=== PATIENT | male | born 1985 | race African-American/Black ===

== ENCOUNTER 2017-07-03 13:32 | Emergency (ER) | payer MEDICAID ==
[2017-07-03 13:58] VITALS: BP 146/80
--- NOTE | 2017-07-03 15:49 | UC ---
Abdominal Pain Male HPI - HPI Summary HPI Summary: c/o cough, nasal d/c and later onset of liquid stools, low grade fever and vomiting for the past 3 days. States he has been able to tolerate food and fluids for the past 24 hrs. States he has been drinking coffee which has sent him to the bathroom. Denies presence of blood or mucus in stool - History of Current Complaint Chief Complaint: UCGI Stated Complaint: NAUSEA HEADACHE COUGH DIARRHEA Time Seen by Provider: 07/03/17 15:38 Hx Obtained From: Patient Onset/Duration: Gradual Onset, Lasting Days Severity Initially: Mild Severity Currently: Moderate Pain Intensity: 4 Location: Epigastric Radiates: No Character: Burning Aggravating Factor(s): Nothing Alleviating Factor(s): Nothing Associated Signs And Symptoms: Positive: Cough, Diarrhea - Risk Factors Testicular Torsion: Negative - Allergies/Home Medications Allergies/Adverse Reactions: Allergies Allergy/AdvReac Type Severity Reaction Status Date / Time shellfish derived Allergy Anaphylatic Verified 07/03/17 13:58 Shock Home Medications: Home Medications Fluoxetine HCl [Prozac] 40 mg PO 07/03/17 [History] Gabapentin (Once-Daily) [Gralise] 300 mg PO 07/03/17 [History] buPROPion TAB* [Wellbutrin TAB*] 100 07/03/17 [History] PMH/Surg Hx/FS Hx/Imm Hx Previously Healthy: Yes - Surgical History Surgical History: Yes Surgery Procedure, Year, and Place: ADDENOIDECTOMY - Family History Known Family History: Positive: Hypertension, Other - cousin with leukemia, grandfather lung ca, breast ca aunt, bipolar - Social History Alcohol Use: None Alcohol Amount: 2 "tall" boys per day (total 48oz total) Substance Use Type: None Substance Use Comment - Amount & Last Used: states no longer Smoking Status (MU): Heavy Every Day Tobacco Smoker Type: Cigarettes Amount Used/How Often: 1 carton per week Household Exposure Type: Cigarettes - Immunization History Most Recent Influenza Vaccination: unsure Most Recent Tetanus Shot: unsure Most Recent Pneumonia Vaccination: unsure Review of Systems Constitutional: Fever ENT: Nasal Discharge Respiratory: Cough Cardiovascular: Negative Gastrointestinal: Abdominal Pain, Vomiting, Diarrhea Genitourinary: Negative All Other Systems Reviewed And Are Negative: Yes Physical Exam Triage Information Reviewed: Yes Appearance: Well-Appearing Vital Signs: Initial Vital Signs Temp 98.7 F 07/03/17 13:53 Pulse 77 07/03/17 13:53 Resp 18 07/03/17 13:53 BP 146/80 07/03/17 13:53 Pulse Ox 100 07/03/17 13:53 Vital Signs Reviewed: Yes Eye Exam: Normal ENT Exam: Normal Dental Exam: Normal Neck exam: Normal Respiratory Exam: Normal Cardiovascular Exam: Normal Abdomen Description: Positive: Nontender, No Organomegaly, Soft Bowel Sounds: Positive: Present Abd Pain Male Course/Dx - Course Course Of Treatment: Continue oral hydration, avoid caffeine, avoid dairy with the exception of yougurt, continue food as tolerated, observe hand hygiene - Differential Dx/Clinical Impression Provider Diagnoses: viral gastroenteritis Discharge - Discharge Plan Condition: Stable Disposition: HOME Patient Education Materials: Gastroenteritis (ED) Referrals: No Primary Care Phys,NOPCP [Primary Care Provider] -
== END 2017-07-03 16:00 | disposition home or self-care (01) ==
LOC: UCEAST 13:32
DX: Z72.89 Other problems related to lifestyle (principal); F17.210 Nicotine dependence, cigarettes, uncomplicated; Z77.22 Contact with and (suspected) exposure to environmental tobacco smoke (acute) (chronic); A08.4 Viral intestinal infection, unspecified
CPT/HCPCS: 99212; G0463

== ENCOUNTER 2017-07-19 19:40 | Emergency (ER) | payer MEDICAID, OTHER ==
[2017-07-19] MEDS ORDERED: Ondansetron ODT TAB* 4 MG PO ONE (21:08)
[2017-07-19] MEDS ORDERED: Acetaminophen TAB* 325 MG PO ONE (21:08)
--- NOTE | 2017-07-19 21:29 | RAD ---
INDICATION: Head injury. COMPARISON: There are no prior studies available for comparison. TECHNIQUE: Contiguous axial sections of the brain were obtained from the skull base to the vertex without contrast. FINDINGS: The ventricles, cisterns and sulci are within normal limits. No significant focal abnormality or mass effect is seen. There is no evidence for hemorrhage. No significant focal osseous abnormality is seen. The visualized portion of the paranasal sinuses and mastoid air cells appear clear. IMPRESSION: NO EVIDENCE FOR ACUTE INTRACRANIAL ABNORMALITY.
--- NOTE | 2017-07-19 21:35 | RAD ---
INDICATION: Trauma. COMPARISON: There are no prior studies available for comparison. TECHNIQUE: Contiguous axial sections were obtained from the skull base through the T2 vertebra. Images were reconstructed in the sagittal and coronal planes. FINDINGS: There is straightening of the cervical spine with loss of the normal cervical lordosis. No fracture is seen. Disc spaces appear maintained. There is no evidence for spinal canal or neural foraminal narrowing. IMPRESSION: STRAIGHTENING OF THE CERVICAL SPINE, NO EVIDENCE FOR FRACTURE OR SUBLUXATION.
--- NOTE | 2017-07-19 21:45 | ED ---
Head Injury - HPI Summary HPI Summary: Patient here with fall earlier today. Was walking in the snow, ice and mud and slipped - fell forward and hit his for head (female health program manager relays hx - pt is foggy about the details). Currently has a headache, nausea, photophobia and neck stiffness. Reports history of multiple head injuries in the past - last one was 10 years ago. He also noticed some right elbow pain - not sure if he fell here - has some stiffness and it feels like it needs to "crack". Denies numbness, tingling, weakness elsewhere. No other pain in his chest, abdomen, back and lower extremities. - History Of Current Complaint Chief Complaint: EDHeadInjury Stated Complaint: HEAD INJURY Time Seen by Provider: 07/19/17 20:25 Hx Obtained From: Patient, Family/Office Aide - female health program manager Pain Intensity: 7 - Allergies/Home Medications Allergies/Adverse Reactions: Allergies Allergy/AdvReac Type Severity Reaction Status Date / Time shellfish derived Allergy Anaphylatic Verified 07/03/17 13:58 Shock PMH/Surg Hx/FS Hx/Imm Hx Previously Healthy: Yes - female health program manager is Endocrine/Hematology History: Denies: Hx Anticoagulant Therapy, Hx Blood Disorders, Hx Diabetes, Hx Thyroid Disease Cardiovascular History: Reports: Hx Hypertension - Has not seen an MD in years - was taking HCTZ but not now Denies: Hx Congestive Heart Failure Respiratory History: Reports: Hx Asthma - as a child Denies: Hx Chronic Obstructive Pulmonary Disease (COPD) GI History: Denies: Hx Ulcer History: Denies: Hx Renal Disease Psychiatric History: Reports: Hx Anxiety, Hx Substance Abuse Denies: Hx Eating Disorder - Surgical History Surgery Procedure, Year, and Place: ADDENOIDECTOMY Infectious Disease History: No Infectious Disease History: Denies: Hx Hepatitis, Hx Human Immunodeficiency Virus (HIV), Traveled Outside the [place] in Last 30 Days - Family History Known Family History: Positive: Hypertension, Other - cousin with leukemia, grandfather lung ca, breast ca aunt, bipolar - Social History Lives: With Family Alcohol Use: None Alcohol Amount: 2 "tall" boys per day (total 48oz total) Hx Substance Use: Yes Substance Use Type: Reports: None Substance Use Comment - Amount & Last Used: states no longer Hx Tobacco Use: Yes Smoking Status (MU): Heavy Every Day Tobacco Smoker Type: Cigarettes Amount Used/How Often: 1 carton per week Review of Systems Positive: Photophobia. Negative: Blurred Vision, Diplopia Negative: Dental Pain Cardiovascular: Negative Negative: Chest Pain Respiratory: Negative Negative: Shortness Of Breath Positive: Nausea. Negative: Abdominal Pain, Vomiting, Diarrhea Positive: no symptoms reported Positive: Arthralgia, Myalgia Skin: Negative Neurological: Other - memory loss Positive: Headache. Negative: Weakness, Paresthesia, Numbness, Syncope, Slurred Speech Psychological: Other - calm but concerned All Other Systems Reviewed And Are Negative: Yes Physical Exam Triage Information Reviewed: Yes Vital Signs On Initial Exam: Initial Vitals Temp Pulse Resp BP Pulse Ox 98.5 F 65 14 144/85 97 07/19/17 19:46 07/19/17 19:46 07/19/17 19:46 07/19/17 19:46 07/19/17 19:46 Vital Signs Reviewed: Yes Appearance: Positive: Well-Nourished - Patient is sleeping on stretcher with face covered upon entrance; he is easily arousable with focal stimuli; he is able to relay his story however is foggy about details - female health program manager helps and relaying history of present illness as she was present and witnessed the event Skin: Positive: Warm, Skin Color Reflects Adequate Perfusion, Dry - No erythema , no ecchymosis, no skin breakdown over for head were patient reports striking his head earlier tonight Head/Face: Positive: Normal Head/Face Inspection - No edema or skull deformity however he does have tenderness to palpation over left forehead Eyes: Positive: EOMI, SHEILA - Mild photophobia, Conjunctiva Clear ENT: Positive: Normal ENT inspection, Hearing grossly normal, Pharynx normal, TMs normal - No hemotympanum Dental: Negative: Dental Fracture @ Neck: Positive: Supple - Mild paracervical tenderness to palpation extending into trapezius muscles; spinous processes nontender to palpation; limited range of motion due to patient reporting "stiffness Respiratory/Lung Sounds: Positive: Clear to Auscultation, Breath Sounds Present - " Cardiovascular: Positive: Normal, RRR, Pulses are Symmetrical in both Upper and Lower Extremities Abdomen Description: Positive: Nontender, No Organomegaly, Soft Musculoskeletal: Positive: Strength/ROM Intact - Full range of motion right upper extremity including shoulder elbow wrist and phalanges however patient reports a sensation to "crack" his elbow and has tenderness to palpation over her olecranon process without edema, ecchymosis, skin breakdown or acute deformity Neurological: Positive: Normal, Sensory/Motor Intact, Alert, Oriented to Person Place, Time - Patient is currently alert and oriented to his person place and time however he has difficulty recalling details of the event and minutes before and after, CN Intact II-III, Facial Symmetry - the events, Speech Normal. Negative: Pronator Drift Present Psychiatric: Positive: Other - Calm, pleasant Diagnostics - Vital Signs Vital Signs Temp Pulse Resp BP Pulse Ox 07/19/17 19:46 98.5 F 65 14 144/85 97 - Laboratory Diagnostic Studies Comment: CTs and XR's reviewed without acute findings Lab Statement: Any lab studies that have been ordered have been reviewed, and results considered in the medical decision making process. Head Injury Course/Dx - Diagnoses Provider Diagnoses: Fall from standing, Concussion, Cervical strain Discharge - Discharge Plan Condition: Stable Disposition: HOME Patient Education Materials: Concussion (ED), Cervical Strain (ED) Forms: *Work Release Referrals: No Primary Care Phys,NOPCP [Primary Care Provider] - Additional Instructions: Physical and cognitive rest over the next 48 hours. Follow-up with PCP, urgent care or return to the emergency department in 2-3 days for neurological recheck. In the meantime you may stay hydrated (ie. avoid stimulants, diuretics , etc - caffeine, alcohol, nicotine, etc), stay well nourished, take acetaminophen alternating with ibuprofen for headache. If you develop change in vision, severe headache despite recommendations, numbness, weakness, syncope , return to the emergency department.
--- NOTE | 2017-07-19 22:06 | RAD ---
INDICATION: Right elbow injury. TECHNIQUE: 2 views of the right elbow were obtained. FINDINGS: The bones are in normal alignment. No joint effusion or fracture is seen. Joint spaces appear maintained. IMPRESSION: NO EVIDENCE FOR FRACTURE, IF THE PATIENT'S SYMPTOMS PERSIST RECOMMEND FOLLOW-UP IMAGING.
[2017-07-19 23:40] VITALS: BP 146/92
== END 2017-07-19 23:38 | disposition home or self-care (01) ==
LOC: ED 19:40
DX: S06.0X9A Concussion with loss of consciousness of unspecified duration, initial encounter (principal); W00.9XXA Unspecified fall due to ice and snow, initial encounter; Y92.9 Unspecified place or not applicable; R51 Headache; R11.0 Nausea; H53.149 Visual discomfort, unspecified; Z86.79 Personal history of other diseases of the circulatory system; F17.210 Nicotine dependence, cigarettes, uncomplicated
CPT/HCPCS: 70450; 72125; 99282; A9270-GY

== ENCOUNTER 2017-07-22 13:29 | Emergency (ER) | payer OTHER ==
[2017-07-22 13:48] VITALS: BP 161/103
--- NOTE | 2017-07-22 13:53 | UC ---
Head Injury HPI - HPI Summary HPI Summary: fell and hit head 3 days ago--seen in ED has continued fatigue, headache, ears ringing and muscular pain in neck - History Of Current Complaint Hx Obtained From: Patient Mechanism Of Injury: fall on ice Onset/Duration: Sudden Onset Severity Currently: Moderate Severity Initially: Moderate Pain Intensity: 7 Pain Scale Used: 0-10 Numeric Character: Pressure Aggravating Factor(s): Nothing Alleviating Factor(s): Nothing Associated Signs And Symptoms: Positive: Negative, Neck Pain, Nausea <Deb Vegas - Last Filed: 07/22/17 14:55> <Charlene Kaiser - Last Filed: 07/23/17 06:51> - History Of Current Complaint Chief Complaint: UCHeadInjury Stated Complaint: HEAD INJURY RECHECK Time Seen by Provider: 07/22/17 13:50 - Allergies/Home Medications Allergies/Adverse Reactions: Allergies Allergy/AdvReac Type Severity Reaction Status Date / Time shellfish derived Allergy Anaphylatic Verified 07/03/17 13:58 Shock PMH/Surg Hx/FS Hx/Imm Hx Previously Healthy: No Cardiovascular History: Hypertension Psychological History: Depression Other History Of: Negative For: Anticoagulant Therapy - Surgical History Surgical History: Yes Surgery Procedure, Year, and Place: ADDENOIDECTOMY - Family History Known Family History: Positive: Hypertension, Other - cousin with leukemia, grandfather lung ca, breast ca aunt, bipolar - Social History Occupation: Employed Full-time Lives: With Family Alcohol Use: None Alcohol Amount: 2 "tall" boys per day (total 48oz total) Substance Use Type: None Substance Use Comment - Amount & Last Used: states no longer Smoking Status (MU): Heavy Every Day Tobacco Smoker Type: Cigarettes Amount Used/How Often: 1 carton per week Have You Smoked in the Last Year: Yes Household Exposure Type: Cigarettes Cessation Counseling: Patient Advised to Stop - Immunization History Most Recent Influenza Vaccination: unsure Most Recent Tetanus Shot: unsure Most Recent Pneumonia Vaccination: unsure <Deb Vegas - Last Filed: 07/22/17 14:55> Review of Systems Constitutional: Negative Skin: Negative Eyes: Negative ENT: Negative Respiratory: Negative Cardiovascular: Negative Gastrointestinal: Nausea Genitourinary: Negative Motor: Negative Neurovascular: Negative Musculoskeletal: Myalgia Neurological: Headache Psychological: Negative Is Patient Immunocompromised?: No All Other Systems Reviewed And Are Negative: Yes <Deb Vegas - Last Filed: 07/22/17 14:55> Physical Exam Triage Information Reviewed: Yes Appearance: Well-Appearing, Well-Nourished, Pain Distress - mild Vital Signs: Initial Vital Signs Temp 98.1 F 07/22/17 13:43 Pulse 68 07/22/17 13:43 Resp 16 07/22/17 13:43 BP 161/103 07/22/17 13:43 Pulse Ox 98 07/22/17 13:43 Vital Signs Reviewed: Yes Eye Exam: Normal Eyes: Positive: Conjunctiva Clear ENT Exam: Normal ENT: Positive: Normal ENT inspection, Hearing grossly normal, Pharynx normal, TMs normal, Tonsillar swelling, Tonsillar exudate, Trismus. Negative: Nasal congestion, Nasal drainage, TM bulging, TM dull, TM red, Muffled voice, Hoarse voice, Dental tenderness, Sinus tenderness, Uvula midline Dental Exam: Normal Neck exam: Normal Neck: Positive: Supple, Nontender, No Lymphadenopathy Respiratory Exam: Normal Respiratory: Positive: Chest non-tender, Lungs clear, Normal breath sounds, No respiratory distress, No accessory muscle use Cardiovascular Exam: Normal Cardiovascular: Positive: RRR, No Murmur, Pulses Normal, Brisk Capillary Refill Abdominal Exam: Normal Abdomen Description: Positive: Nontender, No Organomegaly, Soft. Negative: CVA Tenderness (R), CVA Tenderness (L) Bowel Sounds: Positive: Present Musculoskeletal Exam: Normal Musculoskeletal: Positive: Strength Intact, ROM Intact, No Edema Neurological Exam: Normal Neurological: Positive: Alert, Muscle Tone Normal Psychological Exam: Normal Skin Exam: Normal <Deb Vegas - Last Filed: 07/22/17 14:55> Vital Signs: Initial Vital Signs Temp 98.1 F 07/22/17 13:43 Pulse 68 07/22/17 13:43 Resp 16 07/22/17 13:43 BP 161/103 07/22/17 13:43 Pulse Ox 98 07/22/17 13:43 <Charlene Kaiser - Last Filed: 07/23/17 06:51> Head Injury Course/Dx - Course Course Of Treatment: pain med and muscle relaxer, continue work note follow with pcp for blood pressure and Dr. Westbrook for concussion - Differential Dx/Diagnosis Provider Diagnoses: Concussion, muscle strain <Deb Vegas - Last Filed: 07/22/17 14:55> Discharge <Deb Vegas - Last Filed: 07/22/17 14:55> <Charlene Kaiser - Last Filed: 07/23/17 06:51> - Discharge Plan Condition: Stable Disposition: HOME Prescriptions: Cyclobenzaprine TAB* [Flexeril 10 MG TAB*] 10 mg PO TID PRN #15 tab PRN Reason: muscle spasm Naproxen [Naproxen 500 mg] 500 mg PO BID PRN #30 tablet PRN Reason: pain Patient Education Materials: Concussion (ED), Post Concussion Syndrome (ED), Hypertension (ED) Forms: *Work Release Referrals: [facility] [place] [place]ERR[place] [Outside] - 3 Days Homero Westbrook MD [Medical Doctor] - 3 Days () Attestation Statement User Type: Provider - I was available for consult. This patient was seen by the ANTON. The patient was not presented to, seen by, or examined by me. Michaelle <Charlene Kaiser - Last Filed: 07/23/17 06:51>
== END 2017-07-22 14:27 | disposition home or self-care (01) ==
LOC: UCEAST 13:29
DX: S06.0X9D Concussion with loss of consciousness of unspecified duration, subsequent encounter (principal); S16.1XXD Strain of muscle, fascia and tendon at neck level, subsequent encounter; W00.0XXD Fall on same level due to ice and snow, subsequent encounter; I10 Essential (primary) hypertension; F32.9 Major depressive disorder, single episode, unspecified; F17.210 Nicotine dependence, cigarettes, uncomplicated
CPT/HCPCS: 99211; G0463

== ENCOUNTER 2017-08-25 19:24 | Emergency (ER) | payer OTHER ==
[2017-08-25 19:38] VITALS: BP 144/86
--- NOTE | 2017-08-25 19:38 | UC ---
Throat Pain/Nasal Boyd HPI - History of Current Complaint Stated Complaint: THROAT PAIN Time Seen by Provider: 08/25/17 19:37 - Allergies/Home Medications Allergies/Adverse Reactions: Allergies Allergy/AdvReac Type Severity Reaction Status Date / Time shellfish derived Allergy Anaphylatic Verified 08/25/17 19:38 Shock PMH/Surg Hx/FS Hx/Imm Hx Previously Healthy: Yes Psychological History: Anxiety, Depression Other History Of: Negative For: Anticoagulant Therapy - Surgical History Surgical History: Yes Surgery Procedure, Year, and Place: ADENOIDECTOMY;. WISDOM TEETH; - Family History Known Family History: Positive: Hypertension, Other - cousin with leukemia, grandfather lung ca, breast ca aunt, bipolar - Social History Occupation: Employed Full-time Lives: With Family Alcohol Use: Occasionally Substance Use Type: None Substance Use Comment - Amount & Last Used: states no longer Smoking Status (MU): Heavy Every Day Tobacco Smoker Type: Cigarettes Amount Used/How Often: 1 carton per week Have You Smoked in the Last Year: Yes Household Exposure Type: Cigarettes - Immunization History Most Recent Influenza Vaccination: unsure Most Recent Tetanus Shot: unsure Most Recent Pneumonia Vaccination: unsure Review of Systems Constitutional: Negative Skin: Negative Eyes: Negative ENT: Sore Throat Respiratory: Negative Cardiovascular: Negative Gastrointestinal: Negative Neurovascular: Negative Neurological: Negative Psychological: Negative All Other Systems Reviewed And Are Negative: Yes Physical Exam Triage Information Reviewed: Yes Throat Pain/Nasal Course/Dx - Course Course Of Treatment: POC strep Discharge - Sign-Out/Discharge Documenting (check all that apply): Discharge - Discharge Plan Condition: Stable Disposition: HOME Referrals: No Primary Care Phys,NOPCP [Primary Care Provider] - - Billing Disposition and Condition Condition: STABLE Disposition: HOME
--- NOTE | 2017-08-25 20:40 | UC ---
Ramiro Giron Gabriel, scribed for Feliciano Spear MD on 08/25/17 at 2006 . Throat Pain/Nasal Boyd HPI - HPI Summary HPI Summary: This patient is a 32 year old M [place] [facility] [place] [facility] [place] chief complaint of sore throat that began a week ago. The patient rates the pain 7/10 in severity. Patient reports ear pain. Patient denies rhinorrhea, myalgia, cough, chest congestion, and post nasal drip. - History of Current Complaint Chief Complaint: UCGeneralIllness Stated Complaint: THROAT PAIN Time Seen by Provider: 08/25/17 19:37 Hx Obtained From: Patient Onset/Duration: Lasting Weeks - 1, Still Present Severity: Moderate Pain Intensity: 7 Pain Scale Used: 0-10 Numeric Associated Signs & Symptoms: Positive: Negative - rhinorrhea, myalgia, cough, chest congestion, post nasal drip,, Other - ear pain - Allergies/Home Medications Allergies/Adverse Reactions: Allergies Allergy/AdvReac Type Severity Reaction Status Date / Time shellfish derived Allergy Anaphylatic Verified 08/25/17 19:38 Shock PMH/Surg Hx/FS Hx/Imm Hx Other History Of: Negative For: Anticoagulant Therapy - Surgical History Surgical History: Yes Surgery Procedure, Year, and Place: ADENOIDECTOMY;. WISDOM TEETH; - Family History Known Family History: Positive: Hypertension, Other - cousin with leukemia, grandfather lung ca, breast ca aunt, bipolar - Social History Alcohol Use: None Alcohol Amount: 2 "tall" boys per day (total 48oz total) Substance Use Type: None Substance Use Comment - Amount & Last Used: states no longer Smoking Status (MU): Heavy Every Day Tobacco Smoker Type: Cigarettes Amount Used/How Often: 1 carton per week Have You Smoked in the Last Year: Yes Household Exposure Type: Cigarettes - Immunization History Most Recent Influenza Vaccination: unsure Most Recent Tetanus Shot: unsure Most Recent Pneumonia Vaccination: unsure Review of Systems ENT: Sore Throat, Ear Ache Respiratory: Negative - cough All Other Systems Reviewed And Are Negative: Yes Physical Exam - Summary Physical Exam Summary: General: well-appearing, no pain distress Skin: warm, color reflects adequate perfusion, dry Head: normal Eyes: EOMI, SHEILA ENT: posterior pharynx erythema. Positive anterior cervical lymphadenopathy, uvula is midline, no peritonsillar abscess. Neck: supple, nontender Respiratory: CTA, breath sounds present Cardiovascular: RRR Abdomen: soft, nontender Bowel: present Musculoskeletal: normal, strength/ROM intact Neurological: normal, sensory/motor intact, A&O x3 Psychological: affect/mood appropriate Triage Information Reviewed: Yes Vital Signs: Initial Vital Signs Temp 98.8 F 08/25/17 19:35 Pulse 87 08/25/17 19:35 Resp 20 08/25/17 19:35 BP 144/86 08/25/17 19:35 Pulse Ox 96 08/25/17 19:35 Vital Signs Reviewed: Yes Throat Pain/Nasal Course/Dx - Course Assessment/Plan: BP noted and advised to follow up with PCP. - Differential Dx/Diagnosis Provider Diagnoses: PHARYNGITIS. Elevated blood pressure without a previous diagnoses of hypertension Discharge - Sign-Out/Discharge Documenting (check all that apply): Discharge - Discharge Plan Condition: Stable Disposition: HOME Prescriptions: Amoxicillin/Clavulanate TAB* [Augmentin TAB 875*] 875 mg PO BID #20 tab predniSONE TAB* [Deltasone TAB*] 40 mg PO DAILY #6 tab Patient Education Materials: Pharyngitis (ED) Referrals: [facility] [place] [place] [Outside] Additional Instructions: FOLLOW UP WITH YOUR DOCTOR. GET RECHECKED FOR ANY WORSENING OF YOUR CONDITION OR QUESTIONS OR CONCERNS. YOUR BLOOD PRESSURE WAS ELEVATED TODAY; FOLLOW UP WITH YOUR PRIMARY CARE DOCTOR WITHIN ONE WEEK. - Billing Disposition and Condition Condition: STABLE Disposition: HOME The documentation as recorded by the Ramiro carreon Gabriel accurately reflects the service I personally performed and the decisions made by me, Feliciano Spear MD.
== END 2017-08-25 20:17 | disposition home or self-care (01) ==
LOC: UCEAST 19:24
DX: J02.9 Acute pharyngitis, unspecified (principal); R03.0 Elevated blood-pressure reading, without diagnosis of hypertension; F17.210 Nicotine dependence, cigarettes, uncomplicated
CPT/HCPCS: 87651; 99212; G0463

== ENCOUNTER 2018-01-05 12:25 | Emergency (ER) | payer OTHER ==
--- OUTSIDE RECORDS SUMMARY | 2018-01-05 12:35 | XMS REPORT ---
:1985 External Reference #:[id number] Author Organization [facility] Address [address] [place] [address] Phone [phone] Care Team Providers Name Role Phone Chuck Velazco MD Care Team Information Fundraising Assistant Unavailable Chuck Velazco MD Primary Care Physician Unavailable Payers Type Date Identification Numbers Payment Provider Subscriber Health Maintenance Policy Number: [id number] [facility] [place] (HMO) PayID: [id number] [address] [address] [place] [address] Problems Description No Information Family History Date Family Member(s) Problem(s) Comments General Asthma General Migraine General Vertigo Social History Type Date Description Comments Occupation Unknown Cigarette Use Current Cigarette Smoker 1 Pack Daily Cigars Never Smoked Cigars Pipe Never Smoked A Pipe Smokeless Tobacco Never Used Smokeless Tobacco ETOH Use Occasionally consumed alcohol in the past Smoking Patient is a current smoker, smokes every day Allergies, Adverse Reactions, Alerts Date Description Reaction Status Severity Comments 12/28/2017 NKDA active Medications Medication Date Status Form Strength Qnty SIG Indications Ordering Provider Bupropion HCL 0 Active Tablets ? as directed Unknown 000 Gabapentin 0 Active Capsules ? as directed Unknown 000 Trazodone HCL 0 Active Tablets ? as directed Unknown 000 Fluoxetine HCL 0 Active Capsules ? once daily Unknown 000 Neltrexon Active Capsules as directed Unknown 000 Medications Administered in Office Medication Date Status Form Strength Qnty SIG Indications Ordering Provider Allergen Administered Injection Brett Wilcox IgE 000 Inna Walsh Vital Signs Date Vital Result Comment 12/28/2017 Weight 261.00 lb Weight in kg's 118.390 Height 68 inches 5'8" Height in cm's 172.7 cm BMI (Body Mass Index) 39.7 kg/m2 Results Description No Information Procedures Date CPT Code Description Status 12/28/2017 32352 Tympanometry Completed 12/28/2017 90927 Comprehensive Audiogram Completed Encounters Type Date Location Provider CPT E/M Dx Office Visit 12/28/2017 [place] 06/01/07 Brett Alvarado 22615 S06.0x1A 1:30p Inna Walsh H51.0 F07.81 H81.43 Plan of Care 12/28/2017 - Brett Walsh M.D.S06.0x1A Concussion w Loc of 30 minutes or less, initComments:The patient in July fell, hit his head and had a concussion with LOC. He still is getting dizzy, and at times having double vision. I looked at a MRI he had after the injury that was essentially normal. His hearing today is normal. I think I am seeing disconjugate gaze on his examination. I talked to Dr. Michael and he will have him seen at his office. If needed he may need more of a work up.From my standpoint he needs to start vestibular rehabilitation. He should NOT take the Meclizine.H51.0 Palsy (spasm ) of conjugate gazeF07.81 Postconcussional aodayxwiQ03.43 Vertigo of central origin, bilateral
[2018-01-05 12:46] VITALS: BP 137/100
--- NOTE | 2018-01-05 12:55 | UC ---
Head Injury HPI - HPI Summary HPI Summary: 32 yo gentleman c/o headache since yesterday. Hit head on a metal bar. No LOC. + nausea with vomit at the scene. Feels better now, periodic nausea, but still doesn't feel "right." + H/a. No vis/ aud changes. No p/d/w. No neck pain. No sob, cp / palpitations. + hx prior head injury Jul 2017, seen in ED [facility] (reports /ancillaries in [facility]). No scalp laceration. - History Of Current Complaint Chief Complaint: UCHeadInjury Stated Complaint: HEAD INJURY Time Seen by Provider: 01/05/18 12:48 Hx Obtained From: Patient Pain Intensity: 6 - Allergies/Home Medications Allergies/Adverse Reactions: Allergies Allergy/AdvReac Type Severity Reaction Status Date / Time shellfish derived Allergy Anaphylatic Verified 01/05/18 12:46 Shock PMH/Surg Hx/FS Hx/Imm Hx Previously Healthy: Yes Other History Of: Negative For: Anticoagulant Therapy - Surgical History Surgical History: Yes Surgery Procedure, Year, and Place: ADENOIDECTOMY;. WISDOM TEETH; - Family History Known Family History: Positive: Hypertension, Other - cousin with leukemia, grandfather lung ca, breast ca aunt, bipolar - Social History Alcohol Use: None Alcohol Amount: 2 "tall" boys per day (total 48oz total) Substance Use Type: None Substance Use Comment - Amount & Last Used: states no longer Smoking Status (MU): Heavy Every Day Tobacco Smoker Type: Cigarettes Amount Used/How Often: 1 carton per week Have You Smoked in the Last Year: Yes Household Exposure Type: Cigarettes - Immunization History Most Recent Influenza Vaccination: unsure Most Recent Tetanus Shot: unsure Most Recent Pneumonia Vaccination: unsure Review of Systems Constitutional: Negative Skin: Other - see hpi Eyes: Other - see hpi ENT: Other - see hpi Respiratory: Negative Cardiovascular: Negative Gastrointestinal: Other - see hpi Genitourinary: Negative Motor: Negative Neurovascular: Negative Musculoskeletal: Negative Neurological: Headache Psychological: Negative Is Patient Immunocompromised?: No All Other Systems Reviewed And Are Negative: Yes Physical Exam Triage Information Reviewed: Yes Appearance: Well-Appearing, Well-Nourished Vital Signs: Initial Vital Signs Temp 98 F 01/05/18 12:43 Pulse 66 01/05/18 12:43 Resp 16 01/05/18 12:43 BP 137/100 01/05/18 12:43 Pulse Ox 99 01/05/18 12:43 Vital Signs Reviewed: Yes Eye Exam: Normal - perrla eomi sw / cp fundi nondilated direct, grossly benign ENT Exam: Normal Neck exam: Normal Neck: Positive: Supple, Nontender Respiratory Exam: Normal Respiratory: Positive: Chest non-tender, Lungs clear, Normal breath sounds, No respiratory distress, No accessory muscle use Cardiovascular Exam: Normal Cardiovascular: Positive: RRR, No Murmur, Pulses Normal, Brisk Capillary Refill Abdominal Exam: Normal - + nabs Abdomen Description: Positive: Nontender Musculoskeletal Exam: Normal - moves x 4 ext's, gait steady Neurological Exam: Other - PERRLA EOMI SW CP. Fundi nondilated grossly benign. + mild nystagmus lavelle R. Sees double at appro 18 inches direct interrogation. Facial expressions grossly symmetric. Other than as above, CN 1-12 nl, no c/ o smell d/o. Gait slow, steady. Heel to toe forward and backward eyes open approx 4 ft, able to maintain but unsteady. Sharpened rhomberg 4 sec R, 3 sec L Psychological Exam: Normal - conversing easily and appropriately Skin Exam: Normal - no visible or reported rash. Scalp without laceration. THere is a bump approx 1 1/2cm mid upper occip / post parietal. Minimally fluctuant. Tender to pressure. Head Injury Course/Dx - Course Course Of Treatment: D/w pt and sonography technologist current s/sx - c/w concussion, in the setting of a prior concussion. Reluctant to order CT brain d/t recent imaging ( noted in [employer]); however, given prolonged nausea, h/a, apparent significant injury with vomit, the concern for possible additional trauma is present. D/w pt. CT brain NAD today. Reviewed coa / tx plan with pt and sonography technologist. Questions as posed answered to the best of my ability. Requested note to MELO , advising that he was seen here for treatment. - Differential Dx/Diagnosis Provider Diagnoses: Concussion. in the setting of prior concussion Discharge - Sign-Out/Discharge Documenting (check all that apply): Patient Departure - Discharge Plan Condition: Stable Disposition: HOME Patient Education Materials: Concussion (ED) Forms: *Gen. Provider Communication Referrals: Chuck Velazco MD [Primary Care Provider] - Additional Instructions: Follow up with your primary care physician. Call today or tomorrow for appointment, this week if possible. Continue to follow up with your eye doctor, and any other services regarding your previous concussion treatment. Seek medical attention for worse or new problems. Do not drive until ok by your doctor, and until you are feeling normal to drive. - Billing Disposition and Condition Condition: STABLE Disposition: Home
--- NOTE | 2018-01-05 13:46 | RAD ---
Indication: Head injury with persistent vomiting. CT of the brain was performed without IV contrast. Comparison is made with previous exam dated July 19, 2017. Ventricular structures are midline. No midline shift is noted. The extra-axial spaces are unremarkable. There is no evidence of intracranial mass or hemorrhage. No other high or low density lesions identified. Mastoid air cells and paranasal sinuses are grossly unremarkable. Overall no changes noted since July 19, 2017. IMPRESSION: No intracranial mass or hemorrhage is noted.
== END 2018-01-05 14:50 | disposition home or self-care (01) ==
LOC: UCEAST 12:25
DX: S06.0X0A Concussion without loss of consciousness, initial encounter (principal); W22.8XXA Striking against or struck by other objects, initial encounter; Y93.9 Activity, unspecified; Y92.9 Unspecified place or not applicable; Z91.013 Allergy to seafood; Z82.49 Family history of ischemic heart disease and other diseases of the circulatory system; Z80.6 Family history of leukemia; Z80.1 Family history of malignant neoplasm of trachea, bronchus and lung; Z80.3 Family history of malignant neoplasm of breast; F17.210 Nicotine dependence, cigarettes, uncomplicated
CPT/HCPCS: 70450; 99211; G0463

== ENCOUNTER 2018-01-11 20:50 | Emergency (ER) | payer OTHER ==
--- NOTE | 2018-01-11 21:04 | UC ---
Cardiac HPI - HPI Summary HPI Summary: The pt is a 32 y/o male presenting to c/o of CP rated 6/10 in severity and sudden onset MONROE rated 8/10 in severity worse today. The cramping CP is worse in the left side of his chest and radiates to the L arm. The MONROE is worse at the occipital region and is unrelieved by rapid-release Tylenol . He notes photophobia, fatigue, SOB , and diaphoresis. He reports a hx of migraines and concussion. This is scribe Christin Santoro documenting for attending Dr. Feliciano Spear.I , Dr. Feliciano Spear personally performed the services described in this documentation as scribed in my presence and it is both accurate and complete. - History of Current Complaint Stated Complaint: HEADACHE, HIGH BLOOD PRESSURE, AND CHEST PAIN Time Seen by Provider: 01/11/18 20:58 Hx Obtained From: Patient Onset/Duration: Sudden Onset, Still Present Timing: Constant Initial Severity: Severe Current Severity: Severe Pain Intensity: 8 - CP= 6/10 and MONROE= 8/10 Chest Pain Location: Discrete at: - L chest and occipital region of the head Associated Signs & Symptoms: Positive: Chest Pain, Headaches - Allergy/Home Medications Allergies/Adverse Reactions: Allergies Allergy/AdvReac Type Severity Reaction Status Date / Time shellfish derived Allergy Anaphylatic Verified 01/11/18 21:05 Shock PMH/Surg Hx/FS Hx/Imm Hx Previously Healthy: No - Has a PMHX of HTN, migraines and concussion Other History Of: Negative For: Anticoagulant Therapy - Surgical History Surgical History: Yes Surgery Procedure, Year, and Place: ADENOIDECTOMY;. WISDOM TEETH; - Family History Known Family History: Positive: Cardiac Disease, Hypertension, Diabetes, Other - cousin with leukemia, grandfather lung ca, breast ca aunt, bipolar - Social History Occupation: Employed Full-time Lives: With Family Alcohol Use: None Alcohol Amount: 2 "tall" boys per day (total 48oz total) Substance Use Type: None Substance Use Comment - Amount & Last Used: states no longer Smoking Status (MU): Heavy Every Day Tobacco Smoker Type: Cigarettes Amount Used/How Often: 1 carton per week Have You Smoked in the Last Year: Yes Household Exposure Type: Cigarettes - Immunization History Most Recent Influenza Vaccination: unsure Most Recent Tetanus Shot: unsure Most Recent Pneumonia Vaccination: unsure Review of Systems Constitutional: Other - Positive: Fatigue Skin: Other - Positive: diaphoreis Eyes: Photophobia Respiratory: Shortness Of Breath, Other - Positive: CP Neurological: Headache All Other Systems Reviewed And Are Negative: Yes Physical Exam - Summary Physical Exam Summary: General: well-appearing, mild pain distress Skin: warm, color reflects adequate perfusion, dry Head: normal Eyes: EOMI, SHEILA ENT: normal Neck: supple, nontender Respiratory: CTA, breath sounds present Cardiovascular: RRR Abdomen: soft, nontender Bowel: present Musculoskeletal: normal, strength/ROM intact Neurological: sensory/motor intact, A&O x3 Psychological: affect/mood appropriate Triage Information Reviewed: Yes Vital Signs Reviewed: Yes Diagnostics - EKG EKG Comments: 21:05 ST elevation with probable early repetitive pattern Cardiac Rate: NL Cardiac Rhythm: Sinus: Normal - 67 bpm Ectopy: None EKG Comparison: No Significant Change - No significant changes compared to the one done on 06/27/2015 - Assessment/Plan Course Of Treatment: PATIENT REPORTS HE HAS BEEN ON HCTZ IN THE PAST FOR HTN. WE DO NOT HAVE HCTZ HERE. I GAVE METOPROLOL 12.5MG, ASA 324MG AND ACETAMINOPHEN 975MG PO HERE IN CLINIC. RX HCTZ 25MG PO QD. NO EKG CHANGE COMPARED TO 06/27/17 EKG. I RECOMMENDED GOING DIRECTLY TO THE EMERGENCY DEPARTMENT FOR FURTHER EVALUATION. - Clinical Impression Provider Diagnoses: HEADACHE. CHEST PAIN. HYPERTENSION Discharge - Sign-Out/Discharge Documenting (check all that apply): Patient Departure - Discharge Plan Condition: Stable Disposition: HOME-RECOMMEND TO ED Prescriptions: Hydrochlorothiazide TAB* [Hydrodiuril TAB*] 25 mg PO DAILY #30 tab Patient Education Materials: Chest Pain (ED), Acute Headache (ED), Hypertension (ED) Referrals: Chuck Velazco MD [Primary Care Provider] - Additional Instructions: GO TO THE EMERGENCY DEPARTMENT FOR FURTHER EVALUATION AND CARE OF YOUR CHEST PAIN, HEADACHE AND HIGH BLOOD PRESSURE. FOLLOW UP WITH YOUR DOCTOR. GET RECHECKED FOR ANY WORSENING OF YOUR CONDITION OR QUESTIONS OR CONCERNS. - Billing Disposition and Condition Condition: STABLE Disposition: Home-Recommend to ED
[2018-01-11 21:05] VITALS: BP 169/91
--- OUTSIDE RECORDS SUMMARY | 2018-01-11 21:14 | XMS REPORT ---
:1985 External Reference #:[id number] Author Organization [facility] Address [address] [place] [address] Phone [phone] Care Team Providers Name Role Phone Chuck Velazco M.D. Primary Care Physician Unavailable Payers Type Date Identification Numbers Payment Provider Subscriber Commercial Policy Number: [id number] [employer] Eleno Chacko PayID: [id number] [address] [place] [address] Problems Date Description Provider Status Onset: Vertigo Active Onset: Essential hypertension Active Onset: Seasonal asthma Active Onset: Dizzy spells Active Onset: 01/06/2018 Postconcussion syndrome Deya Bower O.D. Active Family History Date Family Member(s) Problem(s) Comments Father No Current Problems Mother Diabetes Paternal Grandmother Cataract Maternal Grandmother Cataract Social History Type Date Description Comments Marital Status Single Work Status Unemployed ETOH Use Denies alcohol use Smoking Heavy tobacco smoker (more than 10 cigarettes/day) Recreational Drug Use Denies Drug Use Daily Caffeine Consumes on average 2 cups of regular coffee per day Allergies, Adverse Reactions, Alerts Date Description Reaction Status Severity Comments 01/06/2018 NKDA active Medications Medication Date Status Form Strength Qnty SIG Indications Ordering Provider Bupropion HCL / Active Tablets ER 300mg Take 1 Unknown ER (XL) 0000 24HR Tablet By Mouth Every Day Ventolin HFA / Active Aerosol 108(90Base Take 1-2 Unknown 0000 ) mcg/Act Puffs Every 4 Hours as Needed For Wheezing Or Cough Naltrexone / Active Tablets 50mg Take 1 Unknown HCL 0000 Tablet By Mouth Every Day Fluoxetine / Active Capsules 20mg Take 4 Unknown HCL 0000 Capsules By Mouth Every Day For A Max Of 80 MG Per Day Albuterol / Active Nebulizer (2.5mg/3ML Inhale The Unknown Sulfate 0000 ) 0.083% Contents Of 1 Vial Via Nebulizer 2-3 Times A Day as Needed Results Description No Information Procedures Description No Information Plan of Care 01/06/2018 - Deya Bower O.D.F07.81 Postconcussional syndromeComments: Smoking can increase the risk of developing or worsening any eye related disease , as well as affect your overall health. If you are a smoker, we strongly recommend that you quit.If you are not a smoker, we strongly recommend that you do not start.Follow up:1 Year Follow Up
[2018-01-11] MEDS ORDERED: Acetaminophen TAB* 325 MG PO ONE (21:29)
[2018-01-11] MEDS ORDERED: Metoprolol Tartrate TAB* 25 MG PO ONE (21:29)
[2018-01-11] MEDS ORDERED: Aspirin 81 mg CHEW TAB* 81 MG TAB.CHEW PO ONE (21:30)
== END 2018-01-11 21:40 | disposition home health service (06) ==
LOC: UCEAST 20:50
DX: R51 Headache (principal); R07.89 Other chest pain; I10 Essential (primary) hypertension; Z91.013 Allergy to seafood; Z82.49 Family history of ischemic heart disease and other diseases of the circulatory system; Z83.3 Family history of diabetes mellitus; Z80.6 Family history of leukemia; Z80.1 Family history of malignant neoplasm of trachea, bronchus and lung; Z80.3 Family history of malignant neoplasm of breast; F17.210 Nicotine dependence, cigarettes, uncomplicated
CPT/HCPCS: 93005; 99212; A9270-GY; G0463

== ENCOUNTER 2018-09-16 20:34 | Emergency (ER) | payer OTHER ==
[2018-09-16 20:49] VITALS: BP 140/90
--- NOTE | 2018-09-16 21:11 | UC ---
Throat Pain/Nasal Boyd HPI - HPI Summary HPI Summary: Sore throat, sinus pain and pressure, migraine, hot flashes x1 wk. sick contact at home. otc meds sometimes work, nothing makes it worse. - History of Current Complaint Chief Complaint: UCGeneralIllness Stated Complaint: THROAT Time Seen by Provider: 09/16/18 20:56 Hx Obtained From: Patient Pain Intensity: 8 Pain Scale Used: 0-10 Numeric - Allergies/Home Medications Allergies/Adverse Reactions: Allergies Allergy/AdvReac Type Severity Reaction Status Date / Time shellfish derived Allergy Anaphylatic Verified 09/16/18 20:49 Shock PMH/Surg Hx/FS Hx/Imm Hx Previously Healthy: Yes Cardiovascular History: Hypertension Other History Of: Negative For: Anticoagulant Therapy - Surgical History Surgical History: Yes Surgery Procedure, Year, and Place: ADENOIDECTOMY;. WISDOM TEETH; - Family History Known Family History: Positive: Cardiac Disease, Hypertension, Diabetes, Other - cousin with leukemia, grandfather lung ca, breast ca aunt, bipolar - Social History Alcohol Use: None Alcohol Amount: 2 "tall" boys per day (total 48oz total) Substance Use Type: None Substance Use Comment - Amount & Last Used: states no longer Smoking Status (MU): Heavy Every Day Tobacco Smoker Type: Cigarettes Amount Used/How Often: 1 carton per week Have You Smoked in the Last Year: Yes Household Exposure Type: Cigarettes - Immunization History Most Recent Influenza Vaccination: unsure Most Recent Tetanus Shot: unsure Most Recent Pneumonia Vaccination: unsure Review of Systems All Other Systems Reviewed And Are Negative: Yes Constitutional: Positive: Fever, Chills Skin: Negative: Rash ENT: Positive: Sore Throat, Sinus Congestion, Sinus Pain/Tenderness Respiratory: Positive: Cough. Negative: Shortness Of Breath Gastrointestinal: Negative: Vomiting, Diarrhea Musculoskeletal: Positive: Myalgia Neurological: Positive: Headache Physical Exam Triage Information Reviewed: Yes Appearance: Well-Appearing Vital Signs: Initial Vital Signs Temp 98.4 F 09/16/18 20:44 Pulse 89 09/16/18 20:44 Resp 19 09/16/18 20:44 BP 140/90 09/16/18 20:44 Pulse Ox 100 09/16/18 20:44 Vital Signs Reviewed: Yes ENT: Positive: Pharynx normal, TMs normal, Uvula midline Neck: Positive: Supple, Nontender, No Lymphadenopathy, Nuchal Rigidity Respiratory Exam: Normal Cardiovascular Exam: Normal Skin: Negative: Rashes Throat Pain/Nasal Course/Dx - Course Course Of Treatment: acute viral symptoms; flu like illness w/ a Strep test neg. fLU NEG. vitals are good. comfort measures discussed. he declined work note. - Differential Dx/Diagnosis Provider Diagnosis: Viral syndrome Discharge - Sign-Out/Discharge Documenting (check all that apply): Patient Departure All imaging exams completed and their final reports reviewed: No Studies - Discharge Plan Condition: Good Disposition: HOME Patient Education Materials: Pharyngitis (ED) Forms: *Work Release Referrals: Chuck Velazco MD [Primary Care Provider] - Additional Instructions: Please follow up with your primary care provider. - Billing Disposition and Condition Condition: GOOD Disposition: Home
[2018-09-16 21:20] LABS: Influenza A Molecular NEGATIVE (Negative); Influenza B Molecular NEGATIVE (Negative)
== END 2018-09-16 21:37 | disposition home or self-care (01) ==
LOC: UCEAST 20:34
DX: B34.9 Viral infection, unspecified (principal); I10 Essential (primary) hypertension; Z91.013 Allergy to seafood; F17.210 Nicotine dependence, cigarettes, uncomplicated
CPT/HCPCS: 87651; 99211; G0463

== ENCOUNTER 2018-11-23 15:18 | Emergency (ER) | payer OTHER ==
--- OUTSIDE RECORDS SUMMARY | 2018-11-23 16:11 | XMS REPORT | Continuity of Care Document ---
:1985 External Reference #:[id number] Author Name RIKI Cheema Address [address] [place] [address] Care Team Providers Name Role Phone Chuck Velazco Care Team Information Loan Originator Unavailable Chuck Velazco Primary Care Physician Unavailable Payers Date Identification Numbers Payment Provider Subscriber Policy Number: [id number] [facility] Eleno Chacko Group Number: [id number] [address] PayID: [id number] [place] [address] Family History Date Family Member(s) Observation Comments Father Bipolar Disorder Father Hypertension Mother Diabetes Mellitus, II First Sister Developmentally disabled First Sister deaf Grandmother Hypertension Social History Type Date Description Comments Sex Unknown Education Highest level completed, 11th grade Marital Status Single Lives With Significant Other Lives With stepdaughter Home Environment Water Source: Well Home Environment Uses natural gas heating Diet Skips Meals Diet Snacks Diet Average daily caloric intake is inadequate Sleep Reports continuity disturbances Sleep Reports daytime drowsiness Sleep Reports difficulty falling asleep Sleep Typically sleeps less than 5 hours a night Pets None Work Status Full-Time Employment Tobacco Use Start: Unknown Current Cigarette Smoker 1/2 Pack Daily ETOH Use Denies alcohol use Recreational Drug Use Former Drug User cocaine Tobacco Use Start: Unknown Heavy tobacco smoker not ready to quit (more than 10 at this time cigarettes/day) Smoking Status Reviewed: 11/23/18 Heavy tobacco smoker not ready to quit (more than 10 at this time cigarettes/day) Enjoy Exercising Enjoys exercising Exercise Type/Frequency Exercises regularly Seat Belt/Car Seat Always uses seat belt Guns in Home No Smoke Alarms Carbon Monoxide Detector: Yes Smoke Alarms Yes Recent Travel There has not been recent travel abroad Currently Active Patient is currently sexually active Last [place] 4 days ago Condom Use Never STD's No STD History Allergies, Adverse Reactions, Alerts Active Allergies Reaction Severity Comments Date NKDA 11/23/2018 Apples hives 07/30/2017 Carrots hives 07/30/2017 Medications Active Medications SIG Qnty Indications Ordering Date Provider Yessenia ZARCOA inhale 1-2 6.700gm J45.41 Caitie Reyes 10/23/2017 108(90Base) mcg/Act puffs every 4 JOHN Rocha Aerosol hours as needed for wheezing or cough Albuterol Sulfate dispense 1 1box J45.41 Caitie Reyes 10/23/2017 (2.5mg/3ML) bullet into JOHN Rocha 0.083% Nebulizer nebulizer, inhale twice a day, or up to 3 times daily if needed Meclizine HCL take 1 by mouth 30tabs H81.49 Vaishali Murphy 08/06/2017 25mg Tablets 3 times daily JOHN Taylor as needed for dizziness Cyclobenzaprine HCL take one by 10tabs S16.1xxA Vaishali Murphy 07/30/2017 10mg Tablets mouth at JOHN Taylor bedtime as needed pain Diazepam take 1 by mouth 8tabs H81.393 Vaishali Murphy 07/30/2017 5mg Tablets twice daily as JOHN Taylor needed for vertigo. Hydrochlorothiazide 1 by mouth Unknown 50mg Tablets every day Lisinopril 1 by mouth Unknown 5mg Tablets every day History Medications Zyrtec Allergy take one tablet 30tabs J45.41 Caitie Reyes 10/23/2017 - 10mg per day JOHN Rocha 11/23/2018 Tablets Naproxen take one by mouth 30tabs F07.81 Vaishali Murphy 07/30/2017 - 500mg twice daily as JOHN Taylor 11/23/2018 Tablets needed No Active Unknown 07/30/2017 - Medications 07/30/2017 Lidex Apply To Affected 60ml Chuck Velazco, 09/10/2005 - 0.05% Areas Of Scalp qd M.D. 07/30/2017 Solution prn Gym should be out of Chuck Velazco, 10/18/2003 - gym until further M.D. 05/15/2004 notice due to lt leg injury Lidex Solution apply qd prn to 60ml Chuck Velazco, 08/05/2002 - scalp M.D. 05/15/2004 Nizoral 1 qd 30units Chuck Velazco, 08/05/2002 - 200mg M.D. 07/30/2017 Nizoral Shampoo use as directed 3 1Bottle Chuck Velazco, 10/06/2001 - times per week M.D. 07/30/2017 Physical Therapy Treatment And Deb Mezaigne, 04/02/2001 - Evaluation Of Afnp-C 08/05/2002 Right Back Strain Ibuprofen I tid prn 60units Deb Mezaigne, 04/02/2001 - 600mg Afnp-C 04/12/2001 Zithromax 2 Tabs Day 1 6units Chuck Velazco, 03/11/2001 - 250mg M.D. 04/02/2001 1 Tab qd Days 2 Thru 5 Amoxicillin 1 PO tid 30units Chuck Velazco, 03/25/2000 - 250mg M.D. 03/11/2001 Periactin 1 bid-tid 40units Chuck Velazco, 10/16/1999 - 4mg M.D. 03/11/2001 Claritin D 24HR 1 bid prn allergy 60units Chuck Velazco, 10/01/1999 - sx M.D. 05/15/2004 Nasonex 2 Sprays Each 1units Brett Alexis 10/01/1999 - 50mcg Nostril qd Surinder Yip.D. 03/11/2001 Motrin 1 PO tid prn 60units Chuck Velazco, 10/01/1999 - 400mg M.D. 03/11/2001 Compazine 1-2 Tabs Q 6-8 HRS 6units Joann Gabbi, 06/10/1999 - 5mg For TRAVEL RN OR 06/14/1999 Nausea/Vomiting Garamycin Opthalmic 1-2 gtts Into L 10cc Deb Torrez, 11/15/1998 - Solution Eye qid Until Afnp-C 11/25/1998 Clear, Then Cont 1-2 More Days Lamisil Cream Apply To Affected 15GMS Deb Torrez, 10/11/1998 - 1% Area bid Afnp-C 10/25/1998 Ceclor 1 TSP bid 100cc Breezy Monroy 01/18/1998 - 375mg/5cc Keith, M.D. 01/28/1998 Keflex 1 PO bid 14tabs Carmencita Adams, 11/08/1997 - 5Oomg Tabs PNEUMATIC TUBE FITTER-F 11/15/1997 Zithromax 2 Tabs Day 1 6units Chuck ChrisSusie Velazco, 10/18/1997 - 250mg M.D. 01/18/1998 1 Tab qd Days 2 Thru 5 Lotrisone Apply bid 30gm Chuck Velazco, 10/18/1997 - M.D. 10/16/1999 Zithromax 2 Tabs Day 1 6units Carmencita Adams, 08/17/1997 - 250mg PNEUMATIC TUBE FITTER-F 08/22/1997 1 Tab qd Days 2 Thru 5 Claritin 1 qd 30units Carmencita Adams, 08/17/1997 - 10mg PNEUMATIC TUBE FITTER-F 10/16/1999 Zithromax 2 Tabs Day 1 6units Chuck Velazco, 07/27/1997 - 250mg M.D. 08/17/1997 1 Tab qd Days 2 Thru 5 Lorabid 1TSP PO bid 100cc Chuck Velazco, 06/27/1997 - 200mg/5cc M.D. 08/17/1997 Albuterol Inhaler 2 Puffs qid prn 2units Chuck Velazco, 06/27/1997 - M.D. 07/30/2017 Ceclor 1 TSP bid 100cc Chuck Velazco, 06/12/1997 - 375mg/5cc M.D. 08/17/1997 Albuterol Inhaler Q 4 HRS prn 1units Chuck Velazco, 01/04/1997 - M.D. 10/16/1999 Immunizations CPT Code Status Date Vaccine Lot # [id number] Given 03/04/2018 Influenza vac quadrivalent preservative free 3yrs and up Vital Signs Date Vital Result Comment 11/23/2018 12:46pm BP Systolic 130 mmHg BP Diastolic 90 mmHg Heart Rate 86 /min Body Temperature 98.2 F Height 68 inches 5'8" Weight 283.00 lb BMI (Body Mass Index) 43.0 kg/m2 10/23/2017 12:57pm BP Systolic 130 mmHg BP Diastolic 72 mmHg Heart Rate 94 /min Body Temperature 97.4 F Respiratory Rate 17 /min Height 68 inches 5'8" Weight 261.38 lb BMI (Body Mass Index) 39.7 kg/m2 08/06/2017 12:56pm BP Systolic 120 mmHg BP Diastolic 80 mmHg Heart Rate 76 /min Body Temperature 97.7 F Respiratory Rate 16 /min Height 68 inches 5'8" Weight 254.00 lb BMI (Body Mass Index) 38.6 kg/m2 07/30/2017 1:16pm BP Systolic 132 mmHg BP Diastolic 92 mmHg Heart Rate 84 /min Body Temperature 97.0 F Respiratory Rate 18 /min Height 68 inches 5'8" Weight 254.00 lb BMI (Body Mass Index) 38.6 kg/m2 Right Visual Acuity Distance 20/25 Left Visual Acuity Distance 20/30 09/10/2005 9:58am BP Systolic 140 mmHg BP Diastolic 72 mmHg Heart Rate 80 /min Weight 215.00 lb Weight Percentile 96th 05/15/2004 4:24pm BP Systolic 116 mmHg BP Diastolic 74 mmHg Heart Rate 60 /min Weight 191.00 lb Weight Percentile 94th 10/18/2003 3:49pm BP Systolic 130 mmHg BP Diastolic 80 mmHg Heart Rate 68 /min Body Temperature 97.8 F Weight 189.00 lb Weight Percentile 95th 05/31/2003 2:54pm BP Systolic 126 mmHg BP Diastolic 76 mmHg Heart Rate 60 /min Body Temperature 96.7 F Weight 193.00 lb Weight Percentile >95th 03/02/2003 8:29pm BP Systolic 128 mmHg BP Diastolic 86 mmHg Heart Rate 60 /min Body Temperature 97.3 F Weight 201.00 lb Weight Percentile >95th 08/05/2002 4:10pm Body Temperature 97.8 F Weight 214.00 lb Weight Percentile >95th 10/06/2001 1:04pm BP Systolic 122 mmHg BP Diastolic 76 mmHg Heart Rate 68 /min Weight 210.00 lb Weight Percentile >95th 04/02/2001 4:33pm Heart Rate 68 /min Body Temperature 96.0 F Weight 198.00 lb Weight Percentile >95th 03/11/2001 7:29pm BP Systolic 118 mmHg BP Diastolic 84 mmHg Heart Rate 76 /min Weight 196.00 lb Weight Percentile >95th 03/25/2000 1:45pm Body Temperature 96.1 F Weight 172.00 lb 02/10/2000 3:34pm BP Systolic 110 mmHg BP Diastolic 90 mmHg Height 60.25 inches 5'0.25" Weight 175.00 lb BMI (Body Mass Index) 34.2 kg/m2 Height Percentile 37 % 10/01/1999 8:08pm Weight 169.00 lb Weight Percentile >95th 06/10/1999 9:11pm Body Temperature 98.3 F Weight 162.00 lb Weight Percentile >95th 04/18/1999 8:06pm Body Temperature 99.5 F Weight 158.00 lb Weight Percentile >95th 01/28/1999 8:45pm Body Temperature 97.6 F 01/22/1999 6:21pm BP Systolic 120 mmHg BP Diastolic 82 mmHg Body Temperature 98.4 F Weight 147.00 lb Weight Percentile >95th 10/11/1998 8:37pm Height 57.5 inches 4'9.50" Weight 148.00 lb Weight Percentile >95th Height Percentile 34 % 08/07/1998 3:35pm Body Temperature 98.7 F Weight 147.00 lb Weight Percentile >95th 07/25/1998 12:22pm Body Temperature 98.2 F Weight 149.00 lb Weight Percentile >95th 04/16/1998 8:24pm BP Systolic 100 mmHg BP Diastolic 70 mmHg Body Temperature 97.3 F Weight 144.00 lb 01/22/1998 4:37pm BP Systolic 112 mmHg BP Diastolic 84 mmHg Body Temperature 96.3 F Height 56.25 inches 4'8.25" Weight 135.00 lb Weight Percentile >95th Right Visual Acuity Distance 20/25 Left Visual Acuity Distance 20/20 01/18/1998 8:32pm Body Temperature 98.5 F Weight 135.00 lb Weight Percentile >95th 08/17/1997 12:00am Body Temperature 98.8 F Weight 124.00 lb Weight Percentile >95th 07/27/1997 12:00am Body Temperature 99.5 F Weight Percentile <5th 06/06/1997 12:00am Body Temperature 97.0 F Weight 117.00 lb Weight Percentile >95th Results Test Date Facility Test Result H/L Range Note Laboratory test 11/23/2018 [facility] D Dimer 768 ng/mL High 0.0- 400 finding (607)- - Quant (Fma) Troponin-I/TnI <0.05 NG/ML 0-0.64 CBC Auto Diff 11/10/2018 [facility] [place] Blood Count 6.3 10^3/uL N 3.5-10.8 Red Blood Count 4.70 10^6/uL N 4.18-5.48 Hemoglobin 14.0 g/dL N 14.0-18.0 Hematocrit 42 % N 42-52 Mean Corpuscular Volume 90 fL N 80-94 Mean Corpuscular Hemoglobin 30 pg N 27-31 Mean Corpuscular HGB Conc 33 g/dL N 31-36 Red Cell Distribution Width 14 % N 10-15 Platelet Count 352 10^3/uL N 150-450 Mean Platelet Volume 7.2 fL Low 7.4-10.4 Abs Neutrophils 3.7 10^3/uL N 1.5-7.7 Abs Lymphocytes 1.7 10^3/uL N 1.0-4.8 Abs Monocytes 0.6 10^3/uL N 0-0.8 Abs Eosinophils 0.2 10^3/uL N 0-0.6 Abs Basophils 0.0 10^3/uL N 0-0.2 Abs Nucleated RBC 0.0 10^3/uL Granulocyte % 59.6 % Lymphocyte % 26.4 % Monocyte % 10.2 % Eosinophil % 3.2 % Basophil % 0.6 % Nucleated Red Blood Cells % 0.1 Comp Metabolic Panel 11/10/2018 [facility] Sodium 138 mmol/L N 135-145 Potassium 4.3 mmol/L N 3.5-5.0 Chloride 101 mmol/L N 101-111 Co2 Carbon Dioxide 30 mmol/L N 22-32 Anion Gap 7 mmol/L N 2-11 Glucose 89 mg/dL N 70-100 Blood Urea Nitrogen 12 mg/dL N 6-24 Creatinine 1.21 mg/dL High 0.67-1.17 BUN/Creatinine Ratio 9.9 N 8-20 Calcium 10.1 mg/dL N 8.6-10.3 Total Protein 6.8 g/dL N 6.4-8.9 Albumin 4.3 g/dL N 3.2-5.2 Globulin 2.5 g/dL N 2-4 Albumin/Globulin Ratio 1.7 N 1-3 Total Bilirubin 0.30 mg/dL N 0.2-1.0 Alkaline Phosphatase 75 U/L N 34-104 Alt 33 U/L N 7-52 Ast 47 U/L High 13-39 Egfr Non- 69.5 >60 Egfr 84.1 >60 1 Laboratory test 11/10/2018 [facility] TSH (Thyroid Stim 1.43 mcIU/mL N 0.34- 5.60 finding Horm) Rapid Influenza A & B 09/16/2018 [facility] [place] Influenza A Molecular NEGATIVE Negative 2 Molecular Influenza B Molecular NEGATIVE Negative Laboratory test 09/16/2018 [facility] [place] Rapid Strep Negative Negative 3 finding Molecular Ua - Non Micro 02/10/2000 [facility] Appearance CLEAR LT (Fma New) (607)- - YELLOW Glucose - Bilirubin - Ketones - SP Grav 1.015 Blood - PH 7.0 Protein - Urobil 0.2 Nitrite - Leukocytes - Laboratory test finding 01/22/1999 [facility] [place] Throat - Beta Strep NEGATIVE--GRP A Final 1 Because ethnic data is not always readily available, this report includes an eGFR for both -Americans and non- Americans. The National Kidney Disease Education Program (NKDEP) does not endorse the use of the MDRD equation for patients that are not between the ages of 18 and 70, are , have extremes of body size, muscle mass, or nutritional status, or are non- or non-. According to the National Kidney Foundation, irrespective of diagnosis, the stage of the disease is based on the level of kidney function: Stage Description GFR(mL/min/1.73 m(2)) 1 Kidney damage with normal or decreased GFR 90 2 Kidney damage with mild decrease in GFR 60-89 3 Moderate decrease in GFR 30-59 4 Severe decrease in GFR 15-29 5 Kidney failure <15 (or dialysis) 2 Bread Panner: [id number] 3 Bread Panner: [id number] Procedures Date Code Description Status 10/23/2017 76411 Pulse Oximetry Completed 10/23/2017 57693 Nebulizer Treatment Completed 10/23/2017 58547 Nebulizer Treatment Completed Encounters Type Date Location Provider Dx Diagnosis Office Visit 10/23/2017 Main Office Caitie Reyes F17.210 Nicotine dependence , 1:15p JOHN Rocha cigarettes, uncomplicated J45.41 Moderate persistent asthma with (acute) exacerbation Z71.6 Tobacco abuse counseling R06.2 Wheezing Office Visit 08/06/2017 Main Office Vaishali Murphy F07.81 Postconcussional 1:30p Brandon, PRESS LEADER syndrome H81.49 Vertigo of central origin, unspecified ear Office Visit 07/30/2017 Main Office Vaishali Murphy F07.81 Postconcussional 1:15p Brandon, PRESS LEADER syndrome H81.393 Other peripheral vertigo, bilateral S09.90xD Unspecified injury of head, subsequent encounter S16.1xxA Strain of muscle, fascia and tendon at neck level, init Office Visit 09/10/2005 9:50a Main Office Chuck Velazco, 782.1 Rash & Other M.D. Nonspec Skin Eruption 690.18 Seborrheic Dermatitis Other Office Visit 05/15/2004 4:10p Main Office Chuck Velazco, 782.1 Rash & Other M.DSusie Nonspec Skin Eruption Office Visit 10/18/2003 3:10p Main Office Chuck Velazco, 729.5 Pain In Limb M.D. Office Visit 05/31/2003 2:40p Main Office Chuck Velazco, 782.1 Rash & Other M.D. Nonspec Skin Eruption 465.9 URI Upper Respiratory Infections Acute Unspec Sites 493.90 Asthma Unspec W/O Status Asthmaticus Office Visit 03/02/2003 8:10p Main Office Chuck Aranda 493.90 Asthma Unspec W/ O Inna Velazco Status Asthmaticus Office Visit 08/05/2002 4:00p Main Office Chuck Aranda 782.1 Rash & Other Inna Velazco Nonspec Skin Eruption Office Visit 10/06/2001 1:00p Main Office Chuck Velazco M.D. Office Visit 04/02/2001 4:30p Main Office Lawrence Varela Office Visit 03/11/2001 7:00p Main Office Chuck Velazco M.D. Office Visit 02/10/2000 3:20p [facility] Mayank Mary M.D. Plan of Treatment 11/23/2018 - Sulema Mcgraw, PAR07.89 Other chest painComments:Elevated DDimer of 768, sending patient to the ER for urgent CT Angiogram. Warned patient of the risks of not following my advice including but not limited to shock and/ or . Patient understands, refuses ambulance ride and states his partner will drive him there immediately. Case and plan discussed and agreed upon by Dr. Martements:PCMHMedication Management Patient Understands medications he' s taking? Yes Are there Barriers to Adherence? No Has the patient been asked about herbal supplements and therapies, and OTC meds? Yes Care Plan1. Patient has been queried about patient's goals/preferences and functional/lifestyle goals at relevant visits. Yes If relevant, describe: N/A2. Treatment goals as explained to the patient: above3. Are there barriers to meeting treatment goals? No If Yes, please describe:4. Self-Management goals as described to the patient: Yes As always, we strongly encourage a healthy diet and making physical activity a part of your every day life. If you have questions about how or where to start, please contact the office.
[2018-11-23 16:17] LABS: ABS Eosinophils 0.2 10^3/ul (0-0.6); ABS Lymphocytes 1.9 10^3/ul (1.0-4.8); ABS Neutrophils 3.8 10^3/ul (1.5-7.7); Eosinophil % 3.4 %; Hematocrit 42 % (42-52); Hemoglobin 14.6 g/dL (14.0-18.0); Lymphocyte % 26.7 %; Mean Corpuscular HGB Conc 35 g/dL (31-36); Mean Corpuscular Hemoglobin 31 pg (27-31); Mean Corpuscular Volume 88 fL (80-94); Mean Platelet Volume 7.1 fL (7.4-10.4); Nucleated Red Blood Cells % 0.1; Platelet Count 331 10^3/uL (150-450); Red Cell Distribution Width 14 % (10-15)
--- NOTE | 2018-11-23 16:19 | ED ---
HPI Chest Pain - HPI Summary HPI Summary: 33-year-old male presents with chest pain for the past couple months. He states he occasionally gets shortness of breath. No palpitations. no fevers. He states the chest pain got worse on Thursday. He seen at his doctor's office d- dimer is positive. Denies any pain or swelling in calf muscles. No recent travel. Did not live in foreign country. No cough. No abdominal pain. No nausea and vomiting. No recent illness. Does not change with positional changes. - History of Current Complaint Chief Complaint: EDGeneral Time Seen by Provider: 11/23/18 15:34 Pain Intensity: 5 - Additional Pertinent History Primary Care Physician: [id number] - Allergy/Home Medications Allergies/Adverse Reactions: Allergies Allergy/AdvReac Type Severity Reaction Status Date / Time shellfish derived Allergy Anaphylatic Verified 11/23/18 15:26 Shock Home Medications: Home Medications Albuterol HFA INHALER* [Ventolin HFA Inhaler*] 2 puff INH Q4H PRN 11/23/18 [ History Confirmed 11/23/18] Lisinopril 1 tab PO DAILY 11/23/18 [History Confirmed 11/23/18] Naltrexone INJ [Vivitrol INJ] 1 dose IM MONTHLY 11/23/18 [History Confirmed ] PMH/Surg Hx/FS Hx/Imm Hx Endocrine/Hematology History: Denies: Hx Anticoagulant Therapy, Hx Blood Disorders, Hx Diabetes, Hx Thyroid Disease Cardiovascular History: Reports: Hx Hypertension Denies: Hx Congestive Heart Failure, Hx Pacemaker/ICD Respiratory History: Reports: Hx Asthma - CHILD - RESOLVED NOW Denies: Hx Chronic Obstructive Pulmonary Disease (COPD) GI History: Denies: Hx Ulcer History: Denies: Hx Renal Disease Sensory History: Denies: Hx Hearing Aid Psychiatric History: Reports: Hx Anxiety, Hx Substance Abuse Denies: Hx Eating Disorder, Hx Panic Disorder - Surgical History Surgery Procedure, Year, and Place: ADENOIDECTOMY;. WISDOM TEETH; Infectious Disease History: No Infectious Disease History: Denies: Hx Hepatitis, Hx Human Immunodeficiency Virus (HIV), Traveled Outside the [place] in Last 30 Days - Family History Known Family History: Positive: Cardiac Disease, Hypertension, Diabetes, Other - cousin with leukemia, grandfather lung ca, breast ca aunt, bipolar - Social History Alcohol Use: None Alcohol Amount: vivitrol Hx Substance Use: Yes Substance Use Type: Reports: None Substance Use Comment - Amount & Last Used: states no longer Hx Tobacco Use: Yes Smoking Status (MU): Heavy Every Day Tobacco Smoker Type: Cigarettes Amount Used/How Often: 1 carton per week Have You Smoked in the Last Year: Yes Review of Systems Negative: Fever Positive: Chest Pain Positive: Shortness Of Breath. Negative: Cough Negative: Abdominal Pain All Other Systems Reviewed And Are Negative: Yes Physical Exam Triage Information Reviewed: Yes Vital Signs On Initial Exam: Initial Vitals Temp Pulse Resp BP Pulse Ox 98.0 F 82 19 132/76 97 11/23/18 15:23 11/23/18 15:23 11/23/18 15:23 11/23/18 15:23 11/23/18 15:23 Vital Signs Reviewed: Yes Appearance: Positive: Well-Appearing Skin: Positive: Warm, Dry Head/Face: Positive: Normal Head/Face Inspection Eyes: Positive: Normal, Conjunctiva Clear ENT: Positive: Pharynx normal Respiratory/Lung Sounds: Positive: Clear to Auscultation, Breath Sounds Present , Other - nontender chest wall Cardiovascular: Positive: Normal, RRR Abdomen Description: Positive: Nontender, Soft Bowel Sounds: Positive: Present Musculoskeletal: Positive: Normal Neurological: Positive: Normal Psychiatric: Positive: Normal Diagnostics - Vital Signs Vital Signs Temp Pulse Resp BP Pulse Ox 11/23/18 15:45 98 11/23/18 15:23 98.0 F 82 19 132/76 97 - Laboratory Lab Results: Lab Results 11/23/18 Range/Units 15:58 WBC 7.0 (3.5-10.8) 10^3/uL RBC 4.80 (4.18-5.48) 10^6 /uL Hgb 14.6 (14.0-18.0) g/dL Hct 42 (42-52) % MCV 88 (80-94) fL MCH 31 (27-31) pg MCHC 35 (31-36) g/dL RDW 14 (10-15) % Plt Count 331 (150-450) 10^3/uL MPV 7.1 L (7.4-10.4) fL Neut % (Auto) 55.1 % Lymph % (Auto) 26.7 % Dillon % (Auto) 14.1 % Eos % (Auto) 3.4 % Baso % (Auto) 0.7 % Absolute Neuts (auto) 3.8 (1.5-7.7) 10^3/ul Absolute Lymphs (auto) 1.9 (1.0-4.8) 10^3/ul Absolute Monos (auto) 1.0 H (0-0.8) 10^3/ul Absolute Eos (auto) 0.2 (0-0.6) 10^3/ul Absolute Basos (auto) 0.0 (0-0.2) 10^3/ul Absolute Nucleated RBC 0.0 10^3/ul Nucleated RBC % 0.1 Result Diagrams: 11/23/18 15:58 11/23/18 15:58 Lab Statement: Any lab studies that have been ordered have been reviewed, and results considered in the medical decision making process. - CT cta CT Interpretation Completed By: Radiologist Summary of CT Findings: IMPRESSION: 1. NO PULMONARY ARTERIAL FILLING DEFECT TO SUGGEST PULMONARY EMBOLISM. 2. MEDIASTINAL AND HILAR LYMPHADENOPATHY. - EKG No standard instances Cardiac Rate: NL EKG Rhythm: Sinus Rhythm Summary of EKG Findings: sinus rhythm, early repolarization Chest Pain Course/Dx - Course Course Of Treatment: 33-year-old male presents with chest pain for the past couple months. He states he occasionally gets shortness of breath. No palpitations. no fevers. He states the chest pain got worse on Thursday. He seen at his doctor's office d-dimer is positive. Denies any pain or swelling in calf muscles. No recent travel. Did not live in foreign country. No cough. No abdominal pain. No nausea and vomiting. No recent illness. Does not change with positional changes. On exam nonreproducible chest pain. lungs clear to auscultation. Heart regular rate and rhythm. EKG shows sinus rhythm with early repolarization. Troponin 0. BMP normal. CTA shows no PE but does show hilar lymphadenopathy. discussed case Dr. Posey. States the patient can follow-up with primary for continued care for lymphadenopathy. Told to take ibuprofen as pain. Told to follow up primary. Patient understands agrees with plan. - Chest Pain Differential Diagnosis/HQI/PQRI: Acute [place], Chest Wall, GI Disease, Pulmonary Edema - Diagnoses Provider Diagnoses: Atypical chest pain Discharge - Sign-Out/Discharge Documenting (check all that apply): Patient Departure Patient Received Moderate/Deep Sedation with Procedure: No - Discharge Plan Condition: Good Disposition: HOME Patient Education Materials: Noncardiac Chest Pain (ED) Referrals: Chuck Velazco MD [Primary Care Provider] - Additional Instructions: follow up with primary about lymph nodes and chest pain Take ibuprofen every 6 hours as needed for pain Return to ED if develop any new or worsening symptoms - Billing Disposition and Condition Condition: GOOD Disposition: Home
[2018-11-23 16:25] LABS: Albumin 4.2 g/dL (3.2-5.2); Albumin/Globulin Ratio 1.4 (1-3); BUN/Creatinine Ratio 10.3 (8-20); Calcium 9.9 mg/dL (8.6-10.3); EGFR African American 88.3 (>60); Globulin 3.1 g/dL (2-4); Total Bilirubin 0.4 mg/dL (0.2-1.0); Total Protein 7.3 g/dL (6.4-8.9)
[2018-11-23] MEDS ORDERED: Iohexol 350* (CONTRAST) 500 ML MDV IV ONE (16:35)
[2018-11-23 16:46] LABS: Potassium 4.1 mmol/L (3.5-5.0)
[2018-11-23 17:33] VITALS: BP 128/86
[2018-11-23 17:59] LABS: C Reactive Protein 8.42 mg/L (<8.01)
== END 2018-11-23 17:32 | disposition home or self-care (01) ==
LOC: ED 15:18
DX: R07.89 Other chest pain (principal); F17.210 Nicotine dependence, cigarettes, uncomplicated; I10 Essential (primary) hypertension; Z79.899 Other long term (current) drug therapy
CPT/HCPCS: 36415; 71275; 80053; 83605; 83880; 84484; 85025; 86140; 93005; 99282; Q9967

== ENCOUNTER 2018-11-26 21:22 | Emergency (ER) | payer OTHER ==
[2018-11-26 21:35] VITALS: BP 129/95
--- NOTE | 2018-11-26 21:54 | UC ---
Dizzy HPI HPI Summary: Mr. Chacko comes in complaining that he has a long history of vertigo. He was seeing Dr. Velazco in the past and was prescribed Valium. He has not had that for quite a while. In the last 3 days he's worsened again. He feels like waves of dizziness, which she likens to being seasick. He occasionally has tinnitus but it is intermittent. He never had a diagnosis. These are the same symptoms he had previously. When it got really bad it would cause him to vomit and no sweats been happening in the last 3 days. - History Of Current Complaint Chief Complaint: UCHeadache Stated Complaint: VERTIGO Time Seen by Provider: 11/26/18 21:38 Hx Obtained From: Patient Onset/Duration: Gradual Onset Timing: Minutes Severity Initially: Moderate Severity Currently: Moderate Pain Intensity: 7 Character: Room Spinning - Room moving Aggravating Factor(s): Nothing Alleviating Factor(s): Nothing Related History: Similar Episode/Dx as - Vertigo - Allergies/Home Medications Allergies/Adverse Reactions: Allergies Allergy/AdvReac Type Severity Reaction Status Date / Time shellfish derived Allergy Anaphylatic Verified 11/26/18 21:35 Shock PMH/Surg Hx/FS Hx/Imm Hx Previously Healthy: Yes Respiratory History: Asthma Other History Of: Negative For: Anticoagulant Therapy - Surgical History Surgical History: Yes Surgery Procedure, Year, and Place: ADDENOIDECTOMY;. WISDOM TEETH; - Family History Known Family History: Positive: Cardiac Disease, Hypertension, Diabetes, Other - cousin with leukemia, grandfather lung ca, breast ca aunt, bipolar - Social History Alcohol Use: None Alcohol Amount: vivitrol Substance Use Type: None Substance Use Comment - Amount & Last Used: states no longer Smoking Status (MU): Current Every Day Smoker Type: Cigarettes Amount Used/How Often: 1/2 PPD Have You Smoked in the Last Year: Yes Household Exposure Type: Cigarettes - Immunization History Most Recent Influenza Vaccination: unsure Most Recent Tetanus Shot: unsure Most Recent Pneumonia Vaccination: unsure Review of Systems All Other Systems Reviewed And Are Negative: Yes Neurological: Positive: Negative Psychological: Positive: Negative Physical Exam - Summary Physical Exam Summary: He looks miserable here but is nontoxic in appearance and his vitals are stable. Triage Information Reviewed: Yes Vital Signs: Initial Vital Signs Temp 96.9 F 11/26/18 21:27 Pulse 63 11/26/18 21:27 Resp 16 11/26/18 21:27 BP 129/95 11/26/18 21:27 Pulse Ox 97 11/26/18 21:27 Vital Signs Reviewed: Yes Eye Exam: Other - He's got horizontal nystagmus that fatigues, worse to the right. ENT Exam: Normal Neck exam: Normal Respiratory Exam: Normal Cardiovascular Exam: Normal Abdominal Exam: Normal Neurological Exam: Normal Psychological Exam: Normal Dizzy Course/Dx - Course Course Of Treatment: Mr. Chacko certainly seems miserable. He's got nystagmus and presents with what seems to be a peripheral vertigo. We will treat him symptomatically and encourage him to follow-up with his PCP. - Differential Dx/Diagnosis Provider Diagnosis: Vertigo Discharge - Sign-Out/Discharge Documenting (check all that apply): Patient Departure All imaging exams completed and their final reports reviewed: No Studies - Discharge Plan Condition: Stable Disposition: HOME Patient Education Materials: Vertigo (ED) Referrals: Chuck Velazco MD [Primary Care Provider] - - Billing Disposition and Condition Condition: STABLE Disposition: Home
[2018-11-26] MEDS ORDERED: Ondansetron ODT TAB* 4 MG PO ONE (21:55)
[2018-11-26] MEDS ORDERED: Meclizine TAB* 12.5 MG PO ONE (21:55)
== END 2018-11-26 22:24 | disposition home or self-care (01) ==
LOC: UCEAST 21:22
DX: R42 Dizziness and giddiness (principal); F17.210 Nicotine dependence, cigarettes, uncomplicated
CPT/HCPCS: 99212; A9270-GY; G0463

== ENCOUNTER 2019-04-05 10:23 | Emergency (ER) | payer BC, OTHER ==
[2019-04-05] MEDS ORDERED: NS 0.9% 1000 ML** 1,000 ML IV ONE (12:55)
[2019-04-05] MEDS ORDERED: Albuterol 2.5 MG/3 ML NEB.SOL* (0.083%) INH ONE (12:57)
[2019-04-05] MEDS ORDERED: Ketorolac INJ* 30 MG/ML 1 ML VIAL IV ONE (13:33)
[2019-04-05 13:45] VITALS: BP 99/57
--- NOTE | 2019-04-05 21:59 | UC ---
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 + febrile last week x 2 days. + sinus pressure, congestion. + headache at base of head, worse today, improved with motring. + body aches, fatigue. + cough, lung "tight" at times. + fatigue. no PMH, no medications - History of Current Complaint Chief Complaint: UCRespiratory Stated Complaint: FEVER WEAK HEADACHE Time Seen by Provider: 04/05/19 12:39 Hx Obtained From: Patient Onset/Duration: Lasting Weeks, Worse Since - daily Severity: Moderate Pain Intensity: 3 Pain Scale Used: 0-10 Numeric Cough: Nonproductive Associated Signs & Symptoms: Positive: Sinus Discomfort, Nasal Discharge, Fever. Negative: Rash - Allergies/Home Medications Allergies/Adverse Reactions: Allergies Allergy/AdvReac Type Severity Reaction Status Date / Time shellfish derived Allergy Anaphylatic Verified 04/05/19 10:37 Shock PMH/Surg Hx/FS Hx/Imm Hx Previously Healthy: Yes Other History Of: Negative For: Anticoagulant Therapy - Surgical History Surgical History: Yes Surgery Procedure, Year, and Place: ADDENOIDECTOMY;. WISDOM TEETH; - Family History Known Family History: Positive: Cardiac Disease, Hypertension, Diabetes, Other - cousin with leukemia, grandfather lung ca, breast ca aunt, bipolar, Non- Contributory - Social History Occupation: Employed Full-time Alcohol Use: None Alcohol Amount: vivitrol Substance Use Type: None Substance Use Comment - Amount & Last Used: states no longer Smoking Status (MU): Current Every Day Smoker Type: Cigarettes Amount Used/How Often: 1/2 PPD Have You Smoked in the Last Year: Yes Household Exposure Type: Cigarettes - Immunization History Most Recent Influenza Vaccination: unsure Most Recent Tetanus Shot: unsure Most Recent Pneumonia Vaccination: unsure Review of Systems All Other Systems Reviewed And Are Negative: Yes Constitutional: Positive: Fever, Chills, Fatigue ENT: Positive: Sore Throat - mild, Nasal Discharge, Sinus Congestion, Sinus Pain /Tenderness Respiratory: Positive: Cough. Negative: Shortness Of Breath Genitourinary: Positive: Negative Motor: Positive: Negative Is Patient Immunocompromised?: No Physical Exam Triage Information Reviewed: Yes Appearance: No Pain Distress, Well-Nourished, Ill-Appearing - moderate Vital Signs: Initial Vital Signs Temp 98 F 11/05/19 10:35 Pulse 79 04/05/19 10:35 Resp 19 04/05/19 10:35 BP 127/78 04/05/19 10:35 Pulse Ox 98 04/05/19 10:35 Eyes: Positive: Conjunctiva Clear ENT: Positive: Pharynx normal, Nasal congestion, Nasal drainage, TMs normal, Sinus tenderness - b/l submand, frontal. Negative: TM bulging, TM dull, TM red , Tonsillar swelling, Tonsillar exudate, Uvula midline Neck: Positive: Supple, Nontender, No Lymphadenopathy. Negative: Nuchal Rigidity, Enlarged Nodes @ Respiratory: Positive: Chest non-tender, Lungs clear, Normal breath sounds, No respiratory distress, No accessory muscle use. Negative: Crackles, Rhonchi, Stridor, Wheezing Cardiovascular: Positive: RRR, No Murmur. Negative: Pulses Normal, Brisk Capillary Refill Musculoskeletal Exam: Normal Neurological Exam: Normal Psychological Exam: Normal Throat Pain/Nasal Course/Dx - Course Course Of Treatment: SInusitis: - Follow up with primary if no improvement within 2-3 days - GO to ER with increased shortness of breath, increased headache, lightheadedness - Toradol as needed for pain angela 6 hours- DO NOT take with Motrin/ Ibuprofen, may take with tylenol - Antibiotics as directed - Increase fluid intake- should be urinating every 3-4 hours as least - Increase rest, work not given - Warm packs to neck for muscle pain, tension headache - Differential Dx/Diagnosis Differential Diagnosis/HQI/PQRI: Peritonsillar Abscess, Pharyngitis, Sinusitis, URI Provider Diagnosis: Sinusitis Discharge ED - Sign-Out/Discharge Documenting (check all that apply): Patient Departure All imaging exams completed and their final reports reviewed: Yes - Discharge Plan Condition: Fair Disposition: HOME Prescriptions: Amoxicillin/Clavulanate TAB* [Augmentin TAB 875*] 875 mg PO BID #20 tab Ketorolac TAB * [Toradol TAB *] 10 mg PO Q6H PRN #10 tab PRN Reason: Pain - Moderate Patient Education Materials: Sinusitis (ED) Forms: *Work Release Referrals: Chuck Velazco MD [Primary Care Provider] - Additional Instructions: - Follow up with primary if no improvement within 2-3 days - GO to ER with increased shortness of breath, increased headache, lightheadedness - Toradol as needed for pain angela 6 hours- DO NOT take with Motrin/ Ibuprofen, may take with tylenol - Antibiotics as directed - Increase fluid intake- should be urinating every 3-4 hours as least - Increase rest, work not given - Warm packs to neck for muscle pain, tension headache - Billing Disposition and Condition Condition: FAIR Disposition: Home
== END 2019-04-05 14:10 | disposition home or self-care (01) ==
LOC: UCEAST 10:23
DX: J32.9 Chronic sinusitis, unspecified (principal); R53.83 Other fatigue; R52 Pain, unspecified; R05 Cough; F17.210 Nicotine dependence, cigarettes, uncomplicated; Z91.013 Allergy to seafood
CPT/HCPCS: 71046; 96360; 96374; 99212; G0463; J1885

== ENCOUNTER 2019-07-06 20:17 | Emergency (ER) | payer SELFPAY ==
[2019-07-06 20:50] LABS: Influenza A Molecular POSITIVE (Negative)
[2019-07-06 21:33] LABS: ABS Lymphocytes 0.4 10^3/ul (1.0-4.8); ABS Monocytes 0.6 10^3/ul (0-0.8); ABS Neutrophils 4.7 10^3/ul (1.5-7.7); Eosinophil % 0.3 %; Hematocrit 44 % (42-52); Hemoglobin 15.4 g/dL (14.0-18.0); Lymphocyte % 7.5 %; Mean Corpuscular HGB Conc 35 g/dL (31-36); Mean Corpuscular Hemoglobin 31 pg (27-31); Mean Corpuscular Volume 89 fL (80-94); Mean Platelet Volume 7.3 fL (7.4-10.4); Nucleated Red Blood Cells % 0.1; Platelet Count 293 10^3/uL (150-450); Red Blood Count 4.96 10^6 /uL (4.18-5.48); Red Cell Distribution Width 14 % (10-15); White Blood Count 5.8 10^3/uL (3.5-10.8)
[2019-07-06 21:41] LABS: Activated Partial Thrombo Time 38.4 seconds (26.0-38.0); INR 1.07 (0.82-1.09)
[2019-07-06 21:49] LABS: Albumin 4.4 g/dL (3.2-5.2); Albumin/Globulin Ratio 1.4 (1-3); BUN/Creatinine Ratio 5.7 (8-20); Calcium 9.4 mg/dL (8.6-10.3); EGFR African American 71.1 (>60); EGFR Non-African American 58.7 (>60); Globulin 3.1 g/dL (2-4); Potassium 3.5 mmol/L (3.5-5.0); Total Bilirubin 0.5 mg/dL (0.2-1.0); Total Protein 7.5 g/dL (6.4-8.9)
[2019-07-06 21:52] LABS: Troponin I 0.01 ng/mL (<0.03)
[2019-07-06] MEDS ORDERED: Oseltamivir CAP* 75 MG CAP PO ONE (22:36)
--- NOTE | 2019-07-06 22:39 | ED ---
HPI Febrile Illness - HPI Summary HPI Summary: 33 year [facility] by angelo complains of congestion , chest pressure, nonproductive cough, scratchy throat, fever, dyspnea, decreased appetite, headache x2 days. No abdominal pain. Hx asthma. He states he was using breathing treatments at home with no relief. The patient rates the pain 8/10 in severity. Symptoms aggravated by nothing. Symptoms alleviated by nothing. Medications reviewed. Allergies noted. Patient states he is unsure if he received influenza vaccination. - History of Current Complaint Chief Complaint: EDFever Time Seen by Provider: 07/06/19 22:22 Hx Obtained From: Patient Onset/Duration: Started Days Ago - 2, Still Present Timing: Constant Current Severity: Severe Pain Intensity: 8 Pain Scale Used: 0-10 Numeric Aggravating Factors: Nothing Alleviating Factors: Nothing - Additional Pertinent History Primary Care Physician: JOSAFAT - Allergy/Home Medications Allergies/Adverse Reactions: Allergies Allergy/AdvReac Type Severity Reaction Status Date / Time shellfish derived Allergy Anaphylatic Verified 04/05/19 10:37 Shock PMH/Surg Hx/FS Hx/Imm Hx Endocrine/Hematology History: Denies: Hx Anticoagulant Therapy, Hx Blood Disorders, Hx Diabetes, Hx Thyroid Disease Cardiovascular History: Reports: Hx Hypertension - on meds Denies: Hx Congestive Heart Failure, Hx Pacemaker/ICD Respiratory History: Reports: Hx Asthma - CHILD - RESOLVED NOW Denies: Hx Chronic Obstructive Pulmonary Disease (COPD) GI History: Denies: Hx Ulcer History: Denies: Hx Renal Disease Sensory History: Denies: Hx Hearing Aid Psychiatric History: Reports: Hx Anxiety, Hx Substance Abuse Denies: Hx Eating Disorder, Hx Panic Disorder - Surgical History Surgery Procedure, Year, and Place: ADDENOIDECTOMY;. WISDOM TEETH; Infectious Disease History: No Infectious Disease History: Denies: Hx Hepatitis, Hx Human Immunodeficiency Virus (HIV), Traveled Outside the [place] in Last 30 Days - Family History Known Family History: Positive: Cardiac Disease, Hypertension, Diabetes, Other - cousin with leukemia, grandfather lung ca, breast ca aunt, bipolar - Social History Alcohol Use: None Alcohol Amount: vivitrol Hx Substance Use: Yes Hx Tobacco Use: Yes Smoking Status (MU): Current Every Day Smoker Type: Cigarettes Amount Used/How Often: 1/2 PPD Have You Smoked in the Last Year: Yes Review of Systems Positive: Fever Positive: Other - congestion, scratchy throat Positive: Shortness Of Breath, Cough, Other - chest pressure Positive: Other - decreased appetite All Other Systems Reviewed And Are Negative: Yes Physical Exam - Summary Physical Exam Summary: Appearance: Well-appearing, Well-nourished, lying in bed comfortably Skin: Warm, dry, no obvious rash Eyes: sclera anicteric, no conjunctival pallor ENT: mucous membranes moist, pharynx appears normal Neck: Supple, nontender Respiratory: Clear to auscultation, no signs of respiratory distress Cardiovascular: Normal S1, S2. No murmurs. Normal distal pulses in tibial and radial bilaterally. Abdomen: Soft, nontender, normal active bowel sounds present Musculoskeletal: Normal, Strength/ROM Intact Neurological: A&Ox3, awake and alert, mentation is normal, speech is fluent and appropriate Psychiatric: affect is normal, does not appear anxious or depressed Triage Information Reviewed: Yes Vital Signs On Initial Exam: Initial Vitals Temp Pulse Resp BP Pulse Ox 102.9 F 107 22 162/88 96 07/06/19 20:18 07/06/19 20:18 07/06/19 20:18 07/06/19 20:18 07/06/19 20:18 Vital Signs Reviewed: Yes Procedures - Sedation Patient Received Moderate/Deep Sedation with Procedure: No Diagnostics - Vital Signs Vital Signs Temp Pulse Resp BP Pulse Ox 07/06/19 20:18 102.9 F 107 22 162/88 96 - Laboratory Lab Results: Lab Results 07/06/19 07/06/19 07/06/19 Range/Units 20:32 21:24 21:24 WBC 5.8 (3.5-10.8) 10^3/uL RBC 4.96 (4.18-5.48) 10^6 /uL Hgb 15.4 (14.0-18.0) g/dL Hct 44 (42-52) % MCV 89 (80-94) fL MCH 31 (27-31) pg MCHC 35 (31-36) g/dL RDW 14 (10-15) % Plt Count 293 (150-450) 10^3/uL MPV 7.3 L (7.4-10.4) fL Neut % (Auto) 81.4 % Lymph % (Auto) 7.5 % Duchesne % (Auto) 10.1 % Eos % (Auto) 0.3 % Baso % (Auto) 0.7 % Absolute Neuts (auto) 4.7 (1.5-7.7) 10^3/ul Absolute Lymphs (auto) 0.4 L (1.0-4.8) 10^3/ul Absolute Monos (auto) 0.6 (0-0.8) 10^3/ul Absolute Eos (auto) 0.0 (0-0.6) 10^3/ul Absolute Basos (auto) 0.0 (0-0.2) 10^3/ul Absolute Nucleated RBC 0.0 10^3/ul Nucleated RBC % 0.1 INR (Anticoag Therapy) 1.07 (0.82-1.09) APTT 38.4 H (26.0-38.0) seconds Sodium (135-145) mmol/L Potassium (3.5-5.0) mmol/L Chloride (101-111) mmol/L Carbon Dioxide (22-32) mmol/L Anion Gap (2-11) mmol/L BUN (6-24) mg/dL Creatinine (0.67-1.17) mg/dL Est GFR ( Amer) (>60) Est GFR (Non-Af Amer) (>60) BUN/Creatinine Ratio (8-20) Glucose (70-100) mg/dL Lactic Acid (0.5-2.0) mmol/L Calcium (8.6-10.3) mg/dL Total Bilirubin (0.2-1.0) mg/dL AST (13-39) U/L ALT (7-52) U/L Alkaline Phosphatase (34-104) U/L Troponin I (<0.03) ng/mL Total Protein (6.4-8.9) g/dL Albumin (3.2-5.2) g/dL Globulin (2-4) g/dL Albumin/Globulin Ratio (1-3) Influenza A (Rapid) Positive A (Negative) Influenza B (Rapid) Not Reportable 07/06/19 07/06/19 Range/Units 21:24 21:24 WBC (3.5-10.8) 10^3/uL RBC (4.18-5.48) 10^6 /uL Hgb (14.0-18.0) g/dL Hct (42-52) % MCV (80-94) fL MCH (27-31) pg MCHC (31-36) g/dL RDW (10-15) % Plt Count (150-450) 10^3/uL MPV (7.4-10.4) fL Neut % (Auto) % Lymph % (Auto) % Duc[place]ne % (Auto) % Eos % (Auto) % Baso % (Auto) % Absolute Neuts (auto) (1.5-7.7) 10^3/ul Absolute Lymphs (auto) (1.0-4.8) 10^3/ul Absolute Monos (auto) (0-0.8) 10^3/ul Absolute Eos (auto) (0-0.6) 10^3/ul Absolute Basos (auto) (0-0.2) 10^3/ul Absolute Nucleated RBC 10^3/ul Nucleated RBC % INR (Anticoag Therapy) (0.82-1.09) APTT (26.0-38.0) seconds Sodium 134 L (135-145) mmol/L Potassium 3.5 (3.5-5.0) mmol/L Chloride 101 (101-111) mmol/L Carbon Dioxide 24 (22-32) mmol/L Anion Gap 9 (2-11) mmol/L BUN 8 (6-24) mg/dL Creatinine 1.40 H (0.67-1.17) mg/dL Est GFR ( Amer) 71.1 (>60) Est GFR (Non-Af Amer) 58.7 (>60) BUN/Creatinine Ratio 5.7 L (8-20) Glucose 101 H (70-100) mg/dL Lactic Acid 1.2 (0.5-2.0) mmol/L Calcium 9.4 (8.6-10.3) mg/dL Total Bilirubin 0.50 (0.2-1.0) mg/dL AST 25 (13-39) U/L ALT 17 (7-52) U/L Alkaline Phosphatase 67 (34-104) U/L Troponin I 0.01 (<0.03) ng/mL Total Protein 7.5 (6.4-8.9) g/dL Albumin 4.4 (3.2-5.2) g/dL Globulin 3.1 (2-4) g/dL Albumin/Globulin Ratio 1.4 (1-3) Influenza A (Rapid) (Negative) Influenza B (Rapid) Result Diagrams: 07/06/19 21:24 07/06/19 21:24 Lab Statement: Any lab studies that have been ordered have been reviewed, and results considered in the medical decision making process. - Radiology CXR Radiology Interpretation Completed By: ED Physician Summary of Radiographic Findings: NO ACUTE PROCESS. PENDING OFFICIAL REPORT Re-Evaluation - Re-Evaluation First Eval Re-Evaluation Time: 22:42 Comment: patient agrees to d/c Course/Dx - Course Course Of Treatment: 33 y/o M presents with congestion, chest pressure, nonproductive cough, scratchy throat, fever, dyspnea, decreased appetite, headache x2 days. Patient unsure if he received influenza vaccination. Bloodwork results with no significant abnormalities except for MPV 7.3, absolute lymphs 0.4, APTT 38.4, sodium 134, creatinine 1.40, BUN/creatinine 5.7 , glucose 101. Influenza A positive. CXR shows no acute process. Patient will be discharged home with prescription for Tamiflu and follow up from [facility]. Patient was instructed to return to Emergency Department for new or worsening symptoms. Patient understands and is agreeable to this plan. - Diagnoses Provider Diagnoses: Influenza A Discharge ED - Sign-Out/Discharge Documenting (check all that apply): Patient Departure - Discharge Plan Condition: Good Disposition: HOME Prescriptions: Oseltamivir CAP* [Tamiflu CAP*] 75 mg PO BID 5 Days #10 cap Patient Education Materials: Influenza (ED) Forms: *Work Release Referrals: [facility] [Outside] - If Needed - Billing Disposition and Condition Condition: GOOD Disposition: Home - Attestation Statements Document Initiated by Scribe: Yes Documenting Scribe: Kellie Coyle Provider For Whom Destini is Documenting (Include Credential): Breezy Posey MD Scribe Attestation: Kellie Giron, scribed for Breezy Posey MD on 07/10/19 at 0621. Scribe Documentation Reviewed: Yes Provider Attestation: The documentation as recorded by the Kellie carreon accurately reflects the service I personally performed and the decisions made by me, Breezy Posey MD Status of Scribe Document: Viewed
[2019-07-06] MEDS ORDERED: Ibuprofen TAB* 400 MG PO ONE (22:54)
[2019-07-06 23:26] VITALS: BP 156/96
--- NOTE | 2019-07-07 17:11 | ED ---
Imaging and Labs Follow Up Follow Up Type: Imaging Imaging Result: IMPRESSION: Posterior costophrenic angle airspace opacification with poor inspiration on lateral view (consider atelectasis). Otherwise, the lungs are clear. R2 Preliminary Imaging Read R2 <Electronically signed by Jos Song MD in [place]> 07/07/19732 Dictated By: Jos Song MD Dictated Date/Time: 07/07/19731 Transcribed Date/Time: 07/07/19731 Copy to: Patient Communication/Plan: Pt. positive influenza. No change in treatment needed at this time. Provider Diagnoses: Influenza A
== END 2019-07-06 23:26 | disposition home or self-care (01) ==
LOC: ED 20:17
DX: J09.X2 Influenza due to identified novel influenza A virus with other respiratory manifestations (principal); I10 Essential (primary) hypertension; F41.9 Anxiety disorder, unspecified; F17.210 Nicotine dependence, cigarettes, uncomplicated; Z90.89 Acquired absence of other organs
CPT/HCPCS: 36415; 71046; 80053; 83605; 84484; 85025; 85610; 85730; 87040; 99282; A9270-GY

== ENCOUNTER 2019-08-08 17:47 | Emergency (ER) | payer SELFPAY ==
[2019-08-08 18:07] VITALS: BP 131/88
[2019-08-08] MEDS ORDERED: Loperamide CAP* 2 MG PO ONE (18:30)
[2019-08-08] MEDS ORDERED: Famotidine TAB* 20 MG PO ONE (18:31)
[2019-08-08] MEDS ORDERED: Lidocaine 2% VISCOUS* 15 ML UDC PO ONE (18:31)
[2019-08-08] MEDS ORDERED: Al Hydrox/Mg Hydrox/Simet LIQ* 30 ML UDC PO ONE (18:31)
--- NOTE | 2019-08-08 19:02 | ED ---
GI/ HPI - HPI Summary HPI Summary: 34 yo BM p/w upper abd pain associated with loose stools x 4-5 times today associated with nausea, remembers eating hamburger at a fast food joint yesterday and chicken parm at his mother's house for dinner, denies f/c/n/v/d - History of Current Complaint Chief Complaint: UCGI Time Seen by Provider: 08/08/19 18:22 Stated Complaint: ABDOMINAL COMPLAINT Hx Obtained From: Patient Hx From Patient Unobtainable Due To: Other Timing: Intermittent Severity: Moderate Current Severity: Moderate Pain Intensity: 6 Location of Pain: Epigastric Pain Characteristics: Dull, Aching Associated Signs and Symptoms: Positive: Negative - Additional Pertinent History Primary Care Physician: JOSAFAT - Allergy/Home Medications Allergies/Adverse Reactions: Allergies Allergy/AdvReac Type Severity Reaction Status Date / Time shellfish derived Allergy Anaphylatic Verified 08/08/19 18:08 Shock Home Medications: Home Medications Loperamide HCl [Anti-Diarrheal] 4 mg PO BID 3 Days #12 tablet 08/08/19 [Rx] Ondansetron ODT TAB* [Zofran 4 MG Odt TAB*] 4 mg PO Q6H PRN 3 Days #12 tab.odt 08/08/19 [Rx] PMH/Surg Hx/FS Hx/Imm Hx Previously Healthy: Yes Endocrine/Hematology History: Denies: Hx Anticoagulant Therapy, Hx Blood Disorders, Hx Diabetes, Hx Thyroid Disease Cardiovascular History: Reports: Hx Hypertension - on meds Denies: Hx Congestive Heart Failure, Hx Pacemaker/ICD Respiratory History: Reports: Hx Asthma - CHILD - RESOLVED NOW Denies: Hx Chronic Obstructive Pulmonary Disease (COPD) GI History: Denies: Hx Ulcer History: Denies: Hx Renal Disease Sensory History: Denies: Hx Hearing Aid Psychiatric History: Reports: Hx Anxiety, Hx Substance Abuse Denies: Hx Eating Disorder, Hx Panic Disorder - Surgical History Surgery Procedure, Year, and Place: ADDENOIDECTOMY;. WISDOM TEETH; Infectious Disease History: No Infectious Disease History: Denies: Hx Hepatitis, Hx Human Immunodeficiency Virus (HIV), Traveled Outside the [place] in Last 30 Days - Family History Known Family History: Positive: Cardiac Disease, Hypertension, Diabetes, Other - cousin with leukemia, grandfather lung ca, breast ca aunt, bipolar, Non- Contributory - Social History Alcohol Use: None Alcohol Amount: vivitrol Hx Substance Use: Yes Substance Use Type: Reports: None Substance Use Comment - Amount & Last Used: states no longer Hx Tobacco Use: Yes Smoking Status (MU): Current Every Day Smoker Type: Cigarettes Amount Used/How Often: 1/2 PPD Have You Smoked in the Last Year: Yes Review of Systems Constitutional: Negative Eyes: Negative ENT: Negative Cardiovascular: Negative Respiratory: Negative Positive: Abdominal Pain, Diarrhea, Nausea. Negative: Vomiting Genitourinary: Negative Positive: see HPI Musculoskeletal: Negative Skin: Negative Neurological/Mental Status: Negative All Other Systems Reviewed And Are Negative: Yes Physical Exam - Summary Physical Exam Summary: Vital Signs Reviewed: Yes Eye Exam: Normal Eyes: Positive: Conjunctiva Clear ENT: Positive: Normal ENT inspection Neck: Positive: Supple Respiratory Exam: Normal Respiratory: Positive: Lungs clear, Normal breath sounds. Negative: Crackles, Rhonchi, Stridor, Wheezing Cardiovascular Exam: Normal, RRR, S1, S2 Abdomen: mild to moderate upper abd tenderness, no CVA tenderness Musculoskeletal Exam: Normal Neurological Exam: Normal Psychological Exam: Normal Skin Exam: Normal Triage Information Reviewed: Yes Vital Signs On Initial Exam: Initial Vitals Temp Pulse Resp BP Pulse Ox 36.9 C 73 20 131/88 99 08/08/19 18:04 08/08/19 18:04 08/08/19 18:04 08/08/19 18:04 08/08/19 18:04 Vital Signs Reviewed: Yes Diagnostics - Vital Signs Vital Signs Temp Pulse Resp BP Pulse Ox 08/08/19 18:04 36.9 C 73 20 131/88 99 - Laboratory Lab Statement: Any lab studies that have been ordered have been reviewed, and results considered in the medical decision making process. GIGU Course/Dx - Course Assessment/Plan: GI pain clinically improved with GI cocktail and zofran ODT, pt to bring in stool cx for eval, sx tx as directed - Diagnoses Provider Diagnoses: Gastroenteritis Discharge ED - Sign-Out/Discharge Documenting (check all that apply): Patient Departure All imaging exams completed and their final reports reviewed: No Studies - Discharge Plan Condition: Stable Disposition: HOME Prescriptions: Loperamide HCl [Anti-Diarrheal] 4 mg PO BID 3 Days #12 tablet Ondansetron ODT TAB* [Zofran 4 MG Odt TAB*] 4 mg PO Q6H PRN 3 Days #12 tab.odt PRN Reason: Nausea Patient Education Materials: Gastroenteritis (ED), Acute Diarrhea (ED), Acute Nausea and Vomiting (ED) Referrals: No Primary Care Phys,NOPCP [Primary Care Provider] - - Billing Disposition and Condition Condition: STABLE Disposition: Home
[2019-08-08 19:15] LABS: Influenza A Molecular Negative (Negative); Influenza B Molecular Negative (Negative)
[2019-08-08] MEDS ORDERED: Ondansetron ODT TAB* 4 MG PO ONE (19:19)
== END 2019-08-08 19:45 | disposition home or self-care (01) ==
LOC: UCEAST 17:47
DX: K52.9 Noninfective gastroenteritis and colitis, unspecified (principal); F17.210 Nicotine dependence, cigarettes, uncomplicated; Z91.013 Allergy to seafood
CPT/HCPCS: 99203; A9270-GY; G0463

== ENCOUNTER 2019-09-28 18:40 | Emergency (ER) | payer MEDICAID ==
[2019-09-28] MEDS ORDERED: Metoclopramide 5 MG/ML VIAL (10 mg) IV ONE (19:09)
[2019-09-28] MEDS ORDERED: diPHENhydraMINE IV 50 MG/ML 1 ml VIAL (BENADRYL) IV ONE ×2 (19:09)
[2019-09-28 19:46] LABS: ABS Basophils 0.1 10^3/ul (0-0.2); ABS Eosinophils 0.2 10^3/ul (0-0.6); ABS Monocytes 0.7 10^3/ul (0-0.8); Eosinophil % 2.2 %; Hematocrit 45 % (42-52); Hemoglobin 15.6 g/dL (14.0-18.0); Lymphocyte % 27.8 %; Mean Corpuscular HGB Conc 34 g/dL (31-36); Mean Corpuscular Hemoglobin 30 pg (27-31); Mean Corpuscular Volume 87 fL (80-94); Mean Platelet Volume 7.5 fL (7.4-10.4); Nucleated Red Blood Cells % 0.2; Platelet Count 366 10^3/uL (150-450); Red Blood Count 5.19 10^6 /uL (4.18-5.48); Red Cell Distribution Width 14 % (10-15); White Blood Count 7.1 10^3/uL (3.5-10.8)
[2019-09-28 19:50] LABS: Albumin 4.6 g/dL (3.2-5.2); Potassium 3.8 mmol/L (3.5-5.0); Total Bilirubin 0.4 mg/dL (0.2-1.0)
[2019-09-28 19:56] LABS: Albumin/Globulin Ratio 1.6 (1-3); BUN/Creatinine Ratio 8.8 (8-20); EGFR African American 90.4 (>60); EGFR Non-African American 74.7 (>60); Globulin 2.9 g/dL (2-4); Total Protein 7.5 g/dL (6.4-8.9)
[2019-09-28 20:27] LABS: Urine Appearance Clear; Urine Bacteria Absent (Absent); Urine Bilirubin Negative (Negative); Urine Blood Negative (Negative); Urine Color Yellow; Urine Glucose Negative (Negative); Urine Ketones Negative (Negative); Urine Nitrite Negative (Negative); Urine Protein Negative (Negative); Urine Red Blood Cell Trace(0-2/hpf) (Absent); Urine Urobilinogen Negative (Negative); Urine White Blood Cell Absent (Absent)
[2019-09-28 20:55] VITALS: BP 156/70
== END 2019-09-28 20:53 | disposition home or self-care (01) ==
LOC: ED 18:40